=== PATIENT | male | born 1960 | race Caucasian/White ===

== ENCOUNTER 2019-01-08 15:33 | Inpatient (IN) | payer SELFPAY ==
[2019-01-08 16:22] LABS: #Basophils 0.1 thou/uL (0.0-0.2); #Eosinphils 0.5 thou/uL (0.0-0.7); #Lymphocytes 1.9 thou/uL (1.20-3.40); #Monocytes 1.1 thou/uL (0.11-0.59); #Neutrophils 7.6 thou/uL (1.40-6.50); %Basophils 0.7 % (0.0-1.0); %Eosinophils 4.2 % (0.0-10.0); %Lymphocytes 17.1 % (21.0-51.0); %Monocytes 9.9 % (0.0-10.0); %Neutrophils 68.1 % (42.0-75.0); Hemoglobin 12.4 g/dL (14.0-18.0); Mean Corpuscular HGB CONC 30.8 g/dL (32.0-36.0); Mean Corpuscular Hemoglobin 25.1 pg (27.0-31.0); Mean Corpuscular Volume 81.4 fL (78.0-98.0); Mean Platelet Volume 8.4 fL (7.4-10.4); Platelet Count 309 thou/uL (130-400); RBC Distribution Width 16.6 % (11.5-14.5); Red Blood Cell (RBC) Count 4.94 mill/uL (4.70-6.10); White Blood Cell (WBC) Count 11.2 thou/uL (4.8-10.8)
--- NOTE | 2019-01-08 16:23 | RAD ---
PORTABLE AP CHEST: Date: 01/08/19 HISTORY: Dyspnea, retained fluid. COMPARISON: 02/23/08. FINDINGS: Cardiac silhouette remains enlarged. Pulmonary vasculature is at the upper limits of normal. There is mild elevation of the right hemidiaphragm. Interstitial markings are prominent, but probably related to the portable technique. There is no consolidation or pleural fluid seen. Vascular calcifications seen thoracic aorta. There has been no significant interval change from the prior exam. IMPRESSION: Cardiomegaly with pulmonary vasculature at the upper limits of normal. POS: AGUSTINA
[2019-01-08 16:32] LABS: INR-International Normal Ratio 1.4; PTT 29.7 SEC (22.9-36.1)
[2019-01-08 16:44] LABS: ALT (SGPT) 12 U/L (8-55); AST (SGOT) 16 U/L (5-34); Acetaminophen Less than 6.0 mcg/mL (10.0-30.0); Albumin 3.6 g/dL (3.5-5.0); Alcohol Less than 10 mg/dL (Less than 10); Alkaline Phosphatase 112 U/L (40-150); Anion Gap 15 mmol/L (10-20); BUN (Urea Nitrogen) 29 mg/dL (8.4-25.7); Bilirubin, Total 0.4 mg/dL (0.2-1.2); CK (CPK) 84 U/L (30-200); Calc. Creatinine Clearance 0 mL/min (70-130); Calcium 8.9 mg/dL (7.8-10.44); Carbon Dioxide 25 mmol/L (22-29); Chloride 99 mmol/L (98-107); Estimated GFR-MDRD 36; Globulin 3.7 g/dL (2.4-3.5); Glucose 227 mg/dL (70-105); Lipase 60 U/L (8-78); Potassium 3.5 mmol/L (3.5-5.1); Protein, Total 7.3 g/dL (6.0-8.3); Salicylate Less than 8.0 mg/dL (15.0-30.0); Sodium 135 mmol/L (136-145)
[2019-01-08] MEDS ORDERED: Furosemide 40 MG/4 ML VIAL ONE ×2 (17:18→17:20)
[2019-01-08 18:08] LABS: Bilirubin Negative (Negative); Blood, Urine Trace (Negative); Clarity CLEAR (Clear); Glucose, Urine (Dipstick) 250 mg/dL (Negative); Leukocyte Negative (Negative); Nitrite Negative (Negative); Protein, Urine (Dipstick) 300 mg/dL (Neg-Trace); Specific Gravity, Urine 1.019 (1.002-1.036); Urobilinogen 0.2 mg/dL (0.2-1.0); pH, Urine 5.5 (5.0-9.0)
[2019-01-08 18:11] LABS: Bacteria/HPF None Seen HPF (None Seen); Hyaline Casts/LPF 7-10 HYALINE CAST LPF (0-3 Hyaline); Pathc Cast-AUWi Flag 0.87 (0-2.49); RBC/HPF 0-3 HPF (0-3); Squamous Epithelial 0-3 HPF (0-3); WBC/HPF 0-3 HPF (0-3)
[2019-01-08 18:25] LABS: Amphetamine Not Detected (NotDetected); Barbiturates Screen Not Detected (NotDetected); Benzodiazepine Screen Not Detected (NotDetected); Cocaine Metabolite Screen Not Detected (NotDetected); Medtox Control Line Valid? VALID (VALID); Medtox Reader # READER 1; Methadone Not Detected (NotDetected); Methamphetamine Not Detected (NotDetected); Opiate Screen Not Detected (NotDetected); Oxycodone Screen Not Detected (NotDetected); Phencyclidine (PCP) Not Detected (NotDetected); THC/Cannabinoid Screen Not Detected (NotDetected); Tricyclic Screen Not Detected (NotDetected)
[2019-01-08] MEDS ORDERED: Ondansetron PF 4 MG/2 ML Vial IVP PRN (20:32)
[2019-01-08] MEDS ORDERED: Ondansetron ODT 4 MG TAB PO PRN (20:32)
[2019-01-08] MEDS ORDERED: Dextrose 50% Abboject 50 ML SYRINGE SLOW IVP PRN (23:30)
[2019-01-08] MEDS ORDERED: Dextrose 5% in Water 1,000 ML IV PRN (23:30)
[2019-01-08 23:38] VITALS: BMI 35.0
[2019-01-09] MEDS: HumaLOG 300 UNITS/3 ML VIAL SC PRN ×5 (00:28→20:37)
--- NOTE | 2019-01-09 00:30 | HP ---
PRIMARY CARE PHYSICIAN: Dr. Avni Bass. CODE STATUS: Full code. TIME OF EVALUATION: 7:40 p.m. CHIEF COMPLAINT: Fluid retention. HISTORY OF PRESENT ILLNESS: A 58-year-old male patient. The patient has a past medical history of cirrhosis of the liver, kidney disease, CHF, neuropathy, gout, diabetes, GERD, hyperlipidemia, hypertension, came to the hospital after having bilateral leg swelling and also shortness of breath. The patient has reported that his symptoms have been present for the past 2 months and has been getting gradually worse, symptoms were reported as [id number]. The patient has been unable to continue his activities of daily living. No clear triggers. No alleviating factors. Of note, the patient was recently admitted to [facility] and had an improvement in the symptoms after 51 pounds reportedly were taken out of his body. REVIEW OF SYSTEMS: CONSTITUTIONAL: No fever or chills. The patient reported generalized weakness. RESPIRATORY: The patient has shortness of breath, cough, no sputum production. CARDIOVASCULAR: No chest pain or palpitation. GASTROINTESTINAL: No nausea, no vomiting, diarrhea, or abdominal pain. 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 GENITOURINARY: No burning on urination. EXTREMITIES: The patient has bilateral leg swelling. All other systems were reviewed and negative except for findings mentioned above. PAST MEDICAL HISTORY: As mentioned in the HPI. PAST SURGICAL HISTORY: No surgical history. PSYCHIATRIC HISTORY: No psych history. SOCIAL HISTORY: No drugs, no alcohol. The patient chews tobacco. FAMILY HISTORY: Reviewed, noncontributory for current presentation. KNOWN ALLERGIES: To codeine and penicillins. REPORTED MEDICATIONS: 1. Glipizide. 2. Colchicine. 3. Levothyroxine. 4. Gabapentin. 5. Allopurinol. 6. Metoprolol. 7. Lasix. 8. Spironolactone. 9. Fluoxetine. 10. Omeprazole. 11. Eliquis. PHYSICAL EXAMINATION: VITAL SIGNS: On presentation, blood pressure 131/96, heart rate 87, respiratory rate was 20, temperature 98.3. Pain was 0/10. Oxygen saturation was 96, initially saturation was 88 on room air, needing nasal cannula 2 L to keep saturation above 90. GENERAL APPEARANCE: The patient is alert, oriented, not in any acute distress. HEENT: Eyes, normal conjunctivae. Moist oral mucosa. Anicteric. NECK: No JVD. RESPIRATORY: The patient has bilateral rales in the bases. No wheezing. Symmetric expansion. CARDIOVASCULAR: Normal rate, regular rhythm. No murmurs. No gallop. Bilateral leg edema. ABDOMEN: Soft, mildly distended. Normal bowel sounds. MUSCULOSKELETAL: Baseline range of motion and strength. No tenderness. SKIN: Warm, intact. No pallor. No rash. No redness. Peripheral pulses are present. Capillary refill seems to be intact. NEUROLOGIC: No evidence of any new focal weakness. Baseline speech. Cranial nerves seems to be intact. PSYCHIATRIC: The patient is in good mood. No anxiety. Optimal judgment. IMAGING STUDIES: EKG was reviewed. The patient has atrial fibrillation at a rate of 85 with QRS duration 166, QT corrected 550, LBBB. Chest x-ray was reviewed. The patient has cardiomegaly with pulmonary vasculature at the upper limits of normal. LABORATORY DATA: Labs were reviewed. The patient has white count 11.2, hemoglobin 12.4, MCV 81.4, platelet count 309. Coagulation; PT 17, INR 1.4, PTT 29.7. Chemistry; sodium 135, potassium 3.5, chloride 99, carbon dioxide 25, anion gap 15, BUN 29, creatinine 1.93, GFR 36, glucose 227, calcium 9.9, total bilirubin 0.4, AST 16, ALT 12, alkaline phosphatase 112. Ammonia 26, creatinine 84. Troponin was negative. Beta-natriuretic peptide 1558. Serum total protein 7.3, albumin 3.6, globulin 3.7, albumin to globulin ratio is 1.0. Lipase was 16. UA; protein was 300, glucose 215. Toxicology was negative. ASSESSMENT AND PLAN: The patient will be placed in the hospital with following medical problems: 1. Fluid overload, might be a mix of multiple problems. The patient had reportedly congestive heart failure, liver failure, kidney failure, previous admissions to another hospital, and hepatorenal syndrome. The patient has bilateral leg edema, the patient now will receive diuresis, we will call Nephrology for assistance with this case. We will follow recommendations. 2. Chronic kidney disease: Possible hepatorenal syndrome. Nephrology has been consulted. Creatinine is better than previous admissions, the patient will need diuresis. 3. History of congestive heart failure. We will have an echo here in the system. Beta-natriuretic peptide is 1558, the patient is in diuresis. Reconcile home medications. 4. History of cirrhosis of the liver, the patient will need diuresis, reconcile home medications. 5. Uncontrolled diabetes. The patient has blood sugar of 227. reconcile home medications. We will place the patient on sliding scale. 6. History of gastroesophageal reflux disease. We will reconcile home medications once updated. 7. Hyperlipidemia, low-cholesterol diet is advised, reconcile home medications once updated. 8. Uncontrolled hypertension. The patient presented with systolic blood pressure 150-145, hypertensive, we will reconcile home medications, we will adjust treatment as needed. 9. Deep venous thrombosis prophylaxis. Job ID: [id number]
[2019-01-09 05:46] LABS: #Basophils 0.1 thou/uL (0.0-0.2); #Eosinphils 0.4 thou/uL (0.0-0.7); #Lymphocytes 1.8 thou/uL (1.20-3.40); #Monocytes 1.3 thou/uL (0.11-0.59); #Neutrophils 6.9 thou/uL (1.40-6.50); %Basophils 0.9 % (0.0-1.0); %Eosinophils 4.1 % (0.0-10.0); %Monocytes 12.7 % (0.0-10.0); %Neutrophils 65.3 % (42.0-75.0); Hemoglobin 11.4 g/dL (14.0-18.0); Mean Corpuscular HGB CONC 30.2 g/dL (32.0-36.0); Mean Corpuscular Hemoglobin 24.8 pg (27.0-31.0); Mean Corpuscular Volume 81.8 fL (78.0-98.0); Mean Platelet Volume 8.6 fL (7.4-10.4); Platelet Count 311 thou/uL (130-400); RBC Distribution Width 16.5 % (11.5-14.5); Red Blood Cell (RBC) Count 4.62 mill/uL (4.70-6.10); White Blood Cell (WBC) Count 10.5 thou/uL (4.8-10.8)
[2019-01-09 05:59] LABS: Anion Gap 15 mmol/L (10-20); BUN (Urea Nitrogen) 31 mg/dL (8.4-25.7); Calc. Creatinine Clearance 88 mL/min (70-130); Calcium 8.6 mg/dL (7.8-10.44); Carbon Dioxide 27 mmol/L (22-29); Chloride 98 mmol/L (98-107); Estimated GFR-MDRD 40; Glucose 205 mg/dL (70-105); Magnesium 2.2 mg/dL (1.6-2.6); Potassium 3.6 mmol/L (3.5-5.1); Sodium 136 mmol/L (136-145)
[2019-01-09] MEDS: Acetaminophen 325 MG TAB PO PRN (06:10)
[2019-01-09] MEDS: Furosemide 40 MG/4 ML VIAL SLOW IVP SCH ×2 (06:10→15:47)
[2019-01-09] MEDS ORDERED: Non-Formulary Item 1 EACH (Levothyroxine Sodium [Synthroid] 200 MCG) PO SCH (09:00)
[2019-01-09] MEDS ORDERED: Levothyroxine Sodium 100 MCG TAB PO SCH (09:15)
--- NOTE | 2019-01-09 09:52 | CON ---
DATE OF CONSULTATION: REASON FOR CONSULTATION: Elevated creatinine. HISTORY OF PRESENT ILLNESS: This is a 58-year-old gentleman, who presented to the hospital yesterday with fluid retention with history of congestive heart failure. His creatinine went up to 2.2, baseline is unavailable. The patient denies any nausea, vomiting, or chest pain. He has had leg swelling on and off. PAST MEDICAL HISTORY: Significant for cirrhosis, hypertension, gout, GERD, and hyperlipidemia. SOCIAL HISTORY: No alcohol or drug use. FAMILY HISTORY: Negative for ESRD. ALLERGIES: REVIEWED. HOME MEDICATIONS: List reviewed. REVIEW OF SYSTEMS: A 15-point review of system was performed and was negative except for positives noted above. GENERAL: HEAD: NECK: No swelling or lumps. NOSE: No epistaxis or discharge. EYES: No diplopia or pain. RESPIRATORY: CARDIOVASCULAR: GASTROINTESTINAL: /LOOM WINDER TENDER: MUSCULOSKELETAL: No joint pain. NEUROPSYCHIATIC SYSTEMS: No suicidal ideation. No ideation. SKIN: Denies any rash or ulcer. CONSTITUTIONAL: No fever or chills. PHYSICAL EXAMINATION: CONSTITUTIONAL: The patient awake and alert. VITAL SIGNS: Afebrile, pulse 87, breathing 16, and blood pressure 131/96. GENERAL APPEARANCE AND MENTAL STATUS: Fair. HEAD/NECK: Normocephalic. Atraumatic. EYES: EOMI. No deformity. EARS: Clear. No ulcers. NOSE: Intact. No lesions. MOUTH: Clear. No discharge. THROAT: Clear. No exudate. LUNGS: Clear. No crackles. CARDIAC: S1, S2. No rub. ABDOMEN: Benign. Bowel sounds positive. GENITALIA/RECTUM: Sky absent. BACK/EXTREMITIES: Lower extremities have edema. NEUROLOGICAL: Alert and motor intact. SKIN: LYMPHATICS: LABORATORY DATA: Labs show hemoglobin 11.4. Creatinine 1.7. Protein 300. ASSESSMENT AND PLAN: Acute kidney injury, chronic kidney disease due to cardiorenal syndrome in the setting of diabetes mellitus. Continue to monitor renal function closely. I will order renal imaging. No indication for dialysis at this time. Job ID: [id number]
[2019-01-09] MEDS: Gabapentin 100 MG CAP PO SCH ×2 (11:08→20:37)
[2019-01-09] MEDS: Metoprolol Tartrate 50 MG TAB PO SCH ×2 (11:08→20:36)
[2019-01-09] MEDS: Metolazone 2.5 MG TAB PO SCH (11:08)
[2019-01-09] MEDS: Colchicine 0.6 MG TAB PO SCH ×2 (11:09→20:36)
[2019-01-09] MEDS: Allopurinol 300 MG TAB PO SCH ×2 (11:09→20:37)
--- NOTE | 2019-01-09 11:19 | ULT ---
STANDARD BILATERAL RENAL ULTRASOUND: HISTORY: Acute kidney injury. COMPARISON: None. TECHNIQUE: Real-time, hernandez-scale, and color evaluation of the kidneys was performed, as well as of the urinary b ladder. FINDINGS: The right kidney measures 11.3 x 4.9 x 5.9 cm, and the left kidney measures 11.1 x 6 x 6 cm. Pre-voi d urinary bladder volume is 70 mL. There is a small left interpolar renal cyst, measuring 2.3 cm. There is perihepatic ascites. IMPRESSION: 1. No evidence of obstructive uropathy. 2. Small to moderate volume perihepatic ascites. POS: TPC
[2019-01-09 15:00] LABS: Actual Bicarbonate (HCO3a) 28.4 mEq/L (22-28); Base Excess (BEa) 4.3 mEq/L (-2.0 to +3.0); CO2 Tension 40.8 mmHg (35.0-45.0); Calcium, Ionized 1.11 mmol/L (1.12-1.30); Carboxyhemoglobin (COHb) 1.3 gm% (0.0-3.0); Hemoglobin (Hb) 12.2 g/dL (14.0-18.0); O2 Tension (PaO2) 81.3 mmHg (80.0-100.0); Puncture Site RRA; pH, Arterial 7.46 (7.35-7.45)
--- NOTE | 2019-01-09 17:37 | CON ---
DATE OF CONSULTATION: 01/09/2019 CONSULTING PHYSICIAN: Dr. Avni Varela. REASON FOR CONSULTATION: Cirrhosis of the liver, ascites. HISTORY OF PRESENT ILLNESS: The patient is a 58-year-old male with past medical history of chronic kidney disease, congestive heart failure, gout, diabetes, GERD, hyperlipidemia, hypertension, and cirrhosis of the liver complicated by ascites, presenting with complaints of increased abdominal distention, lower extremity swelling, and shortness of breath. The patient was recently admitted to the [facility] approximately 1 to 1-1/2 months ago with complaints of increased abdominal distention and lower extremity edema. He was diagnosed at that time with cirrhosis of the liver and hepatic ascites, for which he underwent IV Lasix administration and lost approximately 50 pounds during that admission. He was ultimately discharged to home with plans to continue with oral diuretic management and follow up with the GI physician. However, at home, he did not tolerate the oral diuretics well with no significant increase in urine output with these oral diuretics and ultimately gained back approximately 20 to 30 pounds, at which point, I saw him in clinic. Last week in clinic, he noted significant abdominal distention again as well as exquisite abdominal pain that generalized to the entire abdomen that was sharp/stabbing in nature and concerning for SBP. Plans at the time of clinic evaluation for an expedited paracentesis along with placing the patient on spironolactone and furosemide as part of diuretic management of his hepatic ascites, but with careful attention to his creatinine due to chronic kidney disease and elevated creatinine of 1.7 at that time. Approximately 2 days ago, I was notified by the patient's that he has had no significant urine output despite the administration of spironolactone 100 mg daily and furosemide 40 mg daily and had put out "low colored urine" in addition to increased shortness of breath and increased abdominal distention. With these findings, I instructed both him and his to go to either his PCP or the urgent care facility for further evaluation for possible acute renal failure. When evaluated in the [facility], he was noted to have a creatinine of 2.3, concerning for acute kidney injury versus hepatorenal syndrome, for which he was ultimately transferred to [facility] for further evaluation. Today, the patient states that he continues to have the abdominal pain located primarily in the lower abdominal quadrants, characterizes a sharp stabbing type sensation, but it is improved from when I saw him in clinic last week. He also does continue to have increased shortness of breath at rest as well as on exertion and some mild chest pressure, but no overt chest pain. He also endorses increased lower extremity edema when compared to previous as well, but denies any nausea, vomiting, fevers, chills, hematemesis, melena, hematochezia, dysphagia, or odynophagia. Of note, the patient has received 1 dose of IV Lasix during this admission and had put out approximately 40 to 60 mL of urine with this administration. REVIEW OF SYSTEMS: A 10-category review of systems was obtained with all responses negative except for the pertinent positives as listed in HPI. PAST MEDICAL HISTORY: As per HPI. PAST SURGICAL HISTORY: None. SOCIAL HISTORY: Denies any alcohol or illicit drug use, although, he does use chewing tobacco daily. FAMILY HISTORY: Denies any GI malignancies. OUTPATIENT MEDICATIONS: Reviewed. ALLERGIES: CODEINE AND PENICILLIN. PHYSICAL EXAMINATION: VITAL SIGNS: Temperature 97.8, pulse 75, blood pressure 129/96, respiratory rate 20, and saturating 97% on room air. GENERAL: The patient was sitting at bedside, in no acute distress. Alert and oriented x4. HEENT: Neck supple. Possible mild JVD noted. No scleral icterus noted either. RESPIRATORY: Clear to auscultation in the bilateral upper lung horowitz, although, diminished breath sounds in the bilateral lower lung horowitz, but no discernible crackles or wheezing. CARDIOVASCULAR: Irregularly irregular rhythm without any discernible murmurs, gallops, or rubs. ABDOMEN: Normoactive bowel sounds. Mildly tense to palpation, moderate to significantly distended with tenderness to palpation in the lower abdominal quadrants. EXTREMITIES: 1+ bilateral lower extremity edema extending up to below the knee. Otherwise, no cyanosis or clubbing. LABORATORY DATA: CBC with a white blood cell count of 10.5, hemoglobin 11.4, hematocrit 37.8, platelets 311. INR 1.4. Chemistry with sodium of 136, potassium 3.6, chloride 98, CO2 of 27, BUN 31, creatinine 1.76, glucose 205, AST 16, ALT 12, alkaline phosphatase 112, total bilirubin 0.4, albumin 3.6, and BNP 1558. IMAGING DATA: Renal ultrasound obtained on January 09, 2019, showed no evidence of obstructive uropathy, but did show a aazyy-da-wanxhsic volume perihepatic ascites. Chest x-ray obtained on January 08, 2019, showed an enlarged cardiac silhouette with pulmonary vasculature at the upper limits of normal. There was also mild elevation of the right hemidiaphragm and interstitial markings prominent. ASSESSMENT AND PLAN: The patient is a 58-year-old male with past medical history of chronic kidney disease, congestive heart failure, neuropathy, gout, diabetes, gastroesophageal reflux disease, hyperlipidemia, hypertension, and cirrhosis complicated with ascites, presenting with significant ascites on physical examination and labs consistent with acute kidney injury. Cirrhosis with ascites. The patient is presenting with a recent diagnosis of cirrhosis made on the basis of prior imaging consistent with cirrhotic morphology as well as increased hepatic ascites consistent with portal hypertension. Paracentesis was not performed during his last hospitalization at [facility], so further evaluation cannot be performed at this time in terms of the definite etiology of his ascitic fluid. With the normal platelet count, normal albumin, and only slightly elevated INR, liver function seems to be preserved, making the likelihood of hepatic ascites much less likely. Given his prior history of congestive heart failure and chronic kidney disease, especially recently with decreased to no urinary output, those are more likely explanations why he is developing a significant amount of ascitic fluid. Based on the current labs, his current calculated MELD score is approximately 18, which is primarily driven by his worsening renal function (albeit improving) and can be greater than the Child-Leonard classification C. RECOMMENDATIONS: 1. We would obtain paracentesis with fluid protein, albumin, cell count and culture to evaluate for possible hepatic versus other source of his ascites fluid formation as well as determination for possible SBP. 2. Agree with IV Lasix administration given the refractory nature of oral diuretics as an outpatient. We would continue to closely monitor renal function while inpatient. 3. We would continue the patient on a low-sodium diet with ingestion of no more than 2000 mg of sodium daily. 4. We would consider obtaining an ultrasound or CT scan of the liver during this admission for possible hepatocellular carcinoma, although, this can be performed as an outpatient. 5. We will continue to trend INR and chemistries daily to assess for worsening liver function. 6. We would also assess the patient daily for changes in neurological status as it may be a harbinger of worsening liver function as well. 7. Agree with consultation of Nephrology Service for evaluation of this patient in probable worsening kidney disease that may be contributing to his hypervolemic status. 8. Based on his downtrending creatinine, hepatorenal syndrome is unlikely, but I would avoid any potential nephrotoxic medications during this admission. We will continue to follow. Dr. Low is on-call this weekend and will follow this patient. Please call with any additional questions. Job ID: [id number]
--- NOTE | 2019-01-09 18:22 | ULT ---
LIMITED ULTRASOUND ABDOMEN 01/09/19 HISTORY: Ascites, possible SBP. Elevated white blood cell count. FINDINGS: Limited sonographic evaluation of the abdomen was performed. There is a small amount of intraperitone al free fluid seen within the abdomen, predominantly within the right upper quadrant and to a much le sser extent in each lower quadrant. IMPRESSION: 1. Small amount of ascites. 2. This examination was scheduled as ultrasound guided paracentesis, but patient is currently on Eliquis. After 48 hours of discontinuation of the Eliquis, paracentesis can be performed. POS: AHSAN
[2019-01-09] MEDS: hydrOXYzine 10 MG TAB PO SCH (20:36)
--- NOTE | 2019-01-09 20:50 | PDOC.PN ---
- Subjective Encounter Start Date: 01/09/19 Encounter Start Time: 09:00 Subjective: pt up in bed complains of some pain to his bilateral groin area - Objective Resuscitation Status - Order Detail: 01/08/19 20:32 Resuscitation Status Routine Resuscitation Status: FULL: Full Resuscitation Vital Signs & Weight: Vital Signs (12 hours) Temp Pulse Resp BP Pulse Ox 01/09/19 20:00 97.4 F L 89 16 100/91 H 93 L 01/09/19 15:54 97.8 F 75 20 129/96 H 97 01/09/19 11:48 97.4 F L 97 20 139/84 92 L 01/09/19 11:01 95 Weight Admit Weight 303 lb 5 oz Weight 303 lb 5 oz I&O: 01/08/19 01/09/19 01/10/19 06:59 06:59 06:59 Intake Total 720 970 Output Total 350 1700 Balance 370 -730 Result Diagrams: 01/09/19 05:12 01/09/19 05:12 Additional Labs: Accuchecks 01/09/19 01/09/19 01/09/19 19:51 17:17 10:42 POC Glucose 311 H 321 H 268 H 01/09/19 01/08/19 05:38 23:47 POC Glucose 224 H 306 H Phys Exam - Physical Examination Neck: no nodes, no JVD, supple, full ROM Respiratory: no wheezing, no rales, no rhonchi, wheezing present, clear to auscultation bilateral Cardiovascular: RRR, no significant murmur, no rub, gallop, irregular Gastrointestinal: soft, positive bowel sounds distenstion Musculoskeletal: no edema, pulses present, edema present Dx/Plan (1) SOB (shortness of breath) Code(s): R06.02 - SHORTNESS OF BREATH Status: Acute (2) SIMONA (acute kidney injury) Code(s): N17.9 - ACUTE KIDNEY FAILURE, UNSPECIFIED Status: Acute (3) Decompensation of cirrhosis of liver Code(s): K72.90 - HEPATIC FAILURE, UNSPECIFIED WITHOUT COMA Status: Acute (4) Afib Code(s): I48.91 - UNSPECIFIED ATRIAL FIBRILLATION Status: Acute - Plan will hold eliquis for now -: pt to have paracentesis possible or saturday due to pt being on eliquis -: will continue iv lasix, pt's albumin is normal -: 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 Review of Systems - Review of Systems Respiratory: negative: Cough, Dry, Shortness of Breath, Hemoptysis, SOB with Excertion, Pleuritic Pain, Sputum, Wheezing Cardiovascular: negative: chest pain, palpitations, orthopnea, paroxysmal nocturnal dyspnea, edema, light headedness, other Gastrointestinal: Abdominal Pain Genitourinary: negative: Dysuria, Frequency, Incontinence, Hematuria, Retention , Other - Medications/Allergies Allergies/Adverse Reactions: Allergies Allergy/AdvReac Type Severity Reaction Status Date / Time codeine Allergy Verified 01/09/19 15:22 Penicillins Allergy Verified 01/09/19 00:03 Medications: Current Medications Acetaminophen (Tylenol) 650 mg PO Q4H PRN PRN Reason: Headache/Fever/Mild Pain (1-3) Last Admin: 01/09/19 06:10 Dose: 650 mg Allopurinol (Zyloprim) 300 mg PO BID [facility] Last Admin: 01/09/19 20:37 Dose: 300 mg Colchicine (Colcrys) 0.5 mg PO BID [facility] Last Admin: 01/09/19 20:36 Dose: 0.5 mg Dextrose/Water (Dextrose 50%) 25 gm SLOW IVP PRN PRN PRN Reason: Hypoglycemia Furosemide (Lasix) 40 mg SLOW IVP 0600,1400 [facility] Last Admin: 01/09/19 15:47 Dose: 40 mg Gabapentin (Neurontin) 100 mg PO BID [facility] Last Admin: 01/09/19 20:37 Dose: 100 mg Glucagon (Glucagon) 1 mg IM PRN PRN PRN Reason: Hypoglycemia Hydroxyzine HCl (Atarax) 10 mg PO BID [facility] Last Admin: 01/09/19 20:36 Dose: 10 mg Dextrose/Water (D5w) 1,000 mls @ 0 mls/hr IV .Q0M PRN PRN Reason: Hypoglycemia Insulin Glargine 5 units/ (Miscellaneous Medication) 0.05 mls @ 0 mls/hr SC QAM JOSE DANIEL Insulin Glargine 5 units/ (Miscellaneous Medication) 0.05 mls @ 0 mls/hr SC HS JOSE DANIEL Insulin Human Lispro (Humalog) 0 units SC .MILD SLIDING SCALE PRN PRN Reason: Mild Correctional Scale Last Admin: 01/09/19 20:37 Dose: 5 unit Levothyroxine Sodium (Synthroid) 200 mcg PO 0600 JOSE DANIEL Metolazone (Zaroxolyn) 2.5 mg PO 0830 JOSE DANIEL Last Admin: 01/09/19 11:08 Dose: 2.5 mg Metoprolol Tartrate (Lopressor) 50 mg PO BID JOSE DANIEL Last Admin: 01/09/19 20:36 Dose: 50 mg Ondansetron HCl (Zofran Odt) 4 mg PO Q6H PRN PRN Reason: Nausea/Vomiting Ondansetron HCl (Zofran) 4 mg IVP Q6H PRN PRN Reason: Nausea/Vomiting Sodium Chloride (Flush - Normal Saline) 10 ml IVF Q12HR JOSE DANIEL Sodium Chloride (Flush - Normal Saline) 10 ml IVF PRN PRN PRN Reason: Saline Flush
[2019-01-09] MEDS: Insulin Glargine 5 UNITS in Pre-Filled Syringe 1 EACH SC SCH (21:40)
[2019-01-09] MEDS: Melatonin 3 MG TAB PO PRN (22:37)
[2019-01-10] MEDS: HumaLOG 300 UNITS/3 ML VIAL SC PRN ×3 (06:08→17:51)
[2019-01-10] MEDS: Furosemide 40 MG/4 ML VIAL SLOW IVP SCH (06:08)
[2019-01-10] MEDS: Levothyroxine Sodium 100 MCG TAB PO SCH (06:08)
[2019-01-10] MEDS: Metoprolol Tartrate 50 MG TAB PO SCH ×2 (08:20→20:24)
[2019-01-10] MEDS: Gabapentin 100 MG CAP PO SCH ×2 (08:20→20:24)
[2019-01-10] MEDS: Colchicine 0.6 MG TAB PO SCH ×2 (08:23→20:23)
[2019-01-10] MEDS: Allopurinol 300 MG TAB PO SCH ×2 (08:23→20:24)
[2019-01-10] MEDS: hydrOXYzine 10 MG TAB PO SCH ×2 (08:24→20:24)
[2019-01-10] MEDS: Metolazone 2.5 MG TAB PO SCH (08:24)
[2019-01-10] MEDS: Insulin Glargine 5 UNITS in Pre-Filled Syringe 1 EACH SC SCH (08:25)
[2019-01-10] MEDS ORDERED: Insulin Glargine 5 UNITS in Pre-Filled Syringe 1 EACH SC SCH (09:00)
[2019-01-10 11:13] LABS: Anion Gap 17 mmol/L (10-20); BUN (Urea Nitrogen) 28 mg/dL (8.4-25.7); Calc. Creatinine Clearance 92 mL/min (70-130); Calcium 8.8 mg/dL (7.8-10.44); Carbon Dioxide 26 mmol/L (22-29); Chloride 97 mmol/L (98-107); Estimated GFR-MDRD 42; Glucose 336 mg/dL (70-105); Potassium 3.6 mmol/L (3.5-5.1); Sodium 136 mmol/L (136-145)
[2019-01-10] MEDS ORDERED: Sodium Bicarbonate 2.5 MEQ/5 ML VIAL ONE (12:06)
[2019-01-10 12:40] LABS: Magnesium 1.9 mg/dL (1.6-2.6); Phosphorus 4.2 mg/dL (2.3-4.7)
--- NOTE | 2019-01-10 13:05 | PRG ---
DATE OF SERVICE: 01/10/2019 SUBJECTIVE: A 58-year-old gentleman being seen for acute kidney injury. The patient denies nausea, vomiting, or chest pain. OBJECTIVE: GENERAL: The patient is awake and alert. VITAL SIGNS: Afebrile, pulse 97, breathing 16, blood pressure 138/95. GENERAL APPEARANCE AND MENTAL STATUS: Fair. HEAD/NECK: Normocephalic. Atraumatic. EYES: EOMI. No deformity. EARS: Clear. No ulcers. NOSE: Intact. No lesions. MOUTH: Clear. No discharge. THROAT: Clear. No exudate. LUNGS: Clear. No crackles. CARDIAC: S1, S2. No rub. ABDOMEN: Benign. Bowel sounds positive. GENITALIA/RECTUM: Sky absent. BACK/EXTREMITIES: Edema 0+. NEUROLOGICAL: Alert and motor intact. SKIN: LYMPHATICS: LABORATORY DATA: Labs showed hemoglobin 9.4 and creatinine is 1.6. ASSESSMENT: 1. Acute kidney injury with chronic kidney disease, improved. 2. Hypertension, stable. 3. Anemia, stable. 4. Medication based on GFR appropriate. No indication for dialysis. Job ID: [id number]
--- NOTE | 2019-01-10 13:59 | PRG ---
DATE OF SERVICE: 01/10/2019 SUBJECTIVE: The patient is feeling well. He has no complaints. He is eating well. Had a good bowel movement. No nausea or vomiting. OBJECTIVE: VITAL SIGNS: Temperature 97.8, pulse of 100, respiratory rate 20, and blood pressure 138/95. CHEST: Clear. CARDIOVASCULAR: Regular rate and rhythm. ABDOMEN: Protuberant and nontender, without organomegaly or masses. EXTREMITIES: Show no edema. LABORATORY DATA: Shows a BUN of 28, creatinine 1.68, and glucose 336. Ammonia is 29. CBC shows a hemoglobin 11.4, hematocrit 37.8, and platelet count is 311. Abdominal ultrasound showed small amount of ascites. Renal ultrasound showed dzngd-[id number]-jawxhdby volume of perihepatic ascites. ASSESSMENT: 1. Cirrhosis. 2. Ascites. 3. Renal insufficiency - improving. RECOMMENDATIONS: 1. Paracentesis tomorrow. 2. Albumin prior to paracentesis. 3. Fluid studies postparacentesis. Job ID: [id number]
--- NOTE | 2019-01-10 14:28 | PDOC.PN ---
- Subjective Encounter Start Date: 01/10/19 Encounter Start Time: 10:15 Subjective: pt up in bed feels tired - Objective Resuscitation Status - Order Detail: 01/08/19 20:32 Resuscitation Status Routine Resuscitation Status: FULL: Full Resuscitation Vital Signs & Weight: Vital Signs (12 hours) Temp Pulse Resp BP Pulse Ox 01/10/19 11:53 97.8 F 100 20 138/95 H 94 L 01/10/19 08:14 94 L 01/10/19 07:56 97.9 F 97 20 97/59 L 92 L 01/10/19 04:00 97.5 F L 84 16 145/67 H 90 L Weight Admit Weight 303 lb 5 oz Weight 303 lb I&O: 01/09/19 01/10/19 01/11/19 06:59 06:59 06:59 Intake Total 720 1820 Output Total 350 3150 1275 Balance 528 -1978 -5813 Result Diagrams: 01/09/19 05:12 01/10/19 10:32 Additional Labs: Accuchecks 01/10/19 01/10/19 01/09/19 10:51 05:54 19:51 POC Glucose 339 H 226 H 311 H 01/09/19 17:17 POC Glucose 321 H Phys Exam - Physical Examination Cardiovascular: RRR, no significant murmur, no rub, gallop, irregular Gastrointestinal: soft, positive bowel sounds mild distention of abd Musculoskeletal: no edema, pulses present, edema present Neurological: non-focal, normal sensation, moves all 4 limbs Dx/Plan (1) SOB (shortness of breath) Code(s): R06.02 - SHORTNESS OF BREATH Status: Acute (2) SIMONA (acute kidney injury) Code(s): N17.9 - ACUTE KIDNEY FAILURE, UNSPECIFIED Status: Acute (3) Decompensation of cirrhosis of liver Code(s): K72.90 - HEPATIC FAILURE, UNSPECIFIED WITHOUT COMA Status: Acute (4) Afib Code(s): I48.91 - UNSPECIFIED ATRIAL FIBRILLATION Status: Acute - Plan will change lasix to daily dose -: ammonia level normal -: pt will get his paracentesis in am due to eliquis -: will increase his lantus due to elevated bs * . Review of Systems - Review of Systems Cardiovascular: negative: chest pain, palpitations, orthopnea, paroxysmal nocturnal dyspnea, edema, light headedness, other Gastrointestinal: negative: Nausea, Vomiting, Abdominal Pain, Diarrhea, Constipation, Melena, Hematochezia, Other Genitourinary: negative: Dysuria, Frequency, Incontinence, Hematuria, Retention , Other - Medications/Allergies Allergies/Adverse Reactions: Allergies Allergy/AdvReac Type Severity Reaction Status Date / Time codeine Allergy Verified 01/09/19 15:22 Penicillins Allergy Verified 01/09/19 00:03 Medications: Current Medications Acetaminophen (Tylenol) 650 mg PO Q4H PRN PRN Reason: Headache/Fever/Mild Pain (1-3) Last Admin: 01/09/19 06:10 Dose: 650 mg Albumin Human (Albumin 25%) 50 gm IVPB ONE ONE Stop: 01/11/19 07:46 Allopurinol (Zyloprim) 300 mg PO BID [facility] Last Admin: 01/10/19 08:23 Dose: 300 mg Colchicine (Colcrys) 0.5 mg PO BID [facility] Last Admin: 01/10/19 08:23 Dose: 0.5 mg Dextrose/Water (Dextrose 50%) 25 gm SLOW IVP PRN PRN PRN Reason: Hypoglycemia Furosemide (Lasix) 40 mg SLOW IVP 0600,1400 [facility] Last Admin: 01/10/19 06:08 Dose: 40 mg Furosemide (Lasix) 40 mg SLOW IVP DAILY [facility] Gabapentin (Neurontin) 100 mg PO BID [facility] Last Admin: 01/10/19 08:20 Dose: 100 mg Glucagon (Glucagon) 1 mg IM PRN PRN PRN Reason: Hypoglycemia Hydroxyzine HCl (Atarax) 10 mg PO BID [facility] Last Admin: 01/10/19 08:24 Dose: 10 mg Dextrose/Water (D5w) 1,000 mls @ 0 mls/hr IV .Q0M PRN PRN Reason: Hypoglycemia Insulin Glargine 8 units/ (Miscellaneous Medication) 0.08 mls @ 0 mls/hr SC HS JOSE DANIEL Insulin Glargine 8 units/ (Miscellaneous Medication) 0.08 mls @ 0 mls/hr SC QAM [facility] Insulin Human Lispro (Humalog) 0 units SC .MILD SLIDING SCALE PRN PRN Reason: Mild Correctional Scale Last Admin: 01/10/19 11:30 Dose: 5 unit Levothyroxine Sodium (Synthroid) 200 mcg PO 0600 [facility] Last Admin: 01/10/19 06:08 Dose: 200 mcg Melatonin (Melatonin) 3 mg PO HS PRN PRN Reason: Insomnia Last Admin: 01/09/19 22:37 Dose: 3 mg Metoprolol Tartrate (Lopressor) 50 mg PO BID [facility] Last Admin: 01/10/19 08:20 Dose: 50 mg Ondansetron HCl (Zofran Odt) 4 mg PO Q6H PRN PRN Reason: Nausea/Vomiting Ondansetron HCl (Zofran) 4 mg IVP Q6H PRN PRN Reason: Nausea/Vomiting Sodium Chloride (Flush - Normal Saline) 10 ml IVF Q12HR [facility] Last Admin: 01/10/19 08:33 Dose: 10 ml Sodium Chloride (Flush - Normal Saline) 10 ml IVF PRN PRN PRN Reason: Saline Flush
[2019-01-10] MEDS: Melatonin 3 MG TAB PO PRN (20:44)
[2019-01-10] MEDS ORDERED: Insulin Glargine 8 UNITS in Pre-Filled Syringe 1 EACH SC SCH (21:00)
[2019-01-11] MEDS: Acetaminophen 325 MG TAB PO PRN (00:47)
[2019-01-11] MEDS: Levothyroxine Sodium 100 MCG TAB PO SCH (05:51)
[2019-01-11 06:40] LABS: Anion Gap 12 mmol/L (10-20); BUN (Urea Nitrogen) 28 mg/dL (8.4-25.7); Calc. Creatinine Clearance 99 mL/min (70-130); Calcium 8.9 mg/dL (7.8-10.44); Carbon Dioxide 32 mmol/L (22-29); Chloride 96 mmol/L (98-107); Estimated GFR-MDRD 46; Glucose 226 mg/dL (70-105); Potassium 3.6 mmol/L (3.5-5.1); Sodium 136 mmol/L (136-145)
[2019-01-11] MEDS ORDERED: Albumin 25% 25 GM/100 ML BOT IVPB ONE (07:45)
[2019-01-11] MEDS: Insulin Glargine 8 UNITS in Pre-Filled Syringe 1 EACH SC SCH ×2 (08:54→11:24)
[2019-01-11] MEDS: Metoprolol Tartrate 50 MG TAB PO SCH (09:03)
[2019-01-11] MEDS: Gabapentin 100 MG CAP PO SCH (09:03)
[2019-01-11] MEDS: Colchicine 0.6 MG TAB PO SCH (09:03)
[2019-01-11] MEDS: Allopurinol 300 MG TAB PO SCH (09:03)
[2019-01-11] MEDS: hydrOXYzine 10 MG TAB PO SCH (09:04)
[2019-01-11] MEDS: HumaLOG 300 UNITS/3 ML VIAL SC PRN (11:24)
--- NOTE | 2019-01-11 12:22 | PRG ---
DATE OF SERVICE: 01/11/2019 SUBJECTIVE: The patient is feeling well. He underwent a paracentesis, apparently was small volume paracentesis more of a diagnostic and therapeutic paracentesis. OBJECTIVE: VITAL SIGNS: Temperature 97.5, pulse 81, respiratory rate 16, blood pressure 118/85. CHEST: Clear. CARDIOVASCULAR: Regular rate and rhythm. ABDOMEN: Soft, nontender, protuberant. No change from previous. EXTREMITIES: Normal. LABORATORY DATA: Shows a creatinine 1.56, BUN 28. No fluid results are presently available. ASSESSMENT: 1. Cirrhosis. 2. Ascites. 3. Renal insufficiency-continued improvement. RECOMMENDATIONS: 1. Await peritoneal fluid studies. 2. Stable for discharge from GI standpoint. 3. Outpatient followup with Dr. Cifuentes. Job ID: [id number]
[2019-01-11 12:26] LABS: BF Color Yellow; Body Fluid Source Paracentesis Fluid; Clarity Clear (Clear)
[2019-01-11 12:27] LABS: WBC/NonHematic-Auto 264 /cumm
[2019-01-11 12:47] LABS: BF RBC Count - Manual 590 /cumm
[2019-01-11 12:55] LABS: BF Segmented Neutrophils 12 %; Cell Count Non Hematic 74 %; Lymphocytes 14 %
--- NOTE | 2019-01-11 13:14 | ULT ---
ULTRASOUND-GUIDED PARACENTESIS: CLINICAL INDICATION: Ascites. PROCEDURE: After informed consent had been obtained, the patient was escorted to the ultrasound suite and placed in a supine position. The abdomen was imaged which revealed adequate ascites for the procedure. Th e skin of the abdomen was then prepped and draped in the standard sterile fashion and the skin surfac e, subcutaneous tissues, and peritoneal lining of the abdomen were anesthetized with 1% Lidocaine buf fered with sodium bicarbonate. A right lateral mid abdominal quadrant approach was selected. A smal l skin incision was made at the site of topical anesthesia. Subsequently, under real-time ultrasound guidance a Power Fingerprinting catheter was advanced through the incision site into the peritoneal cavity. Ascites was present at the catheter hub. The catheter was then secured to vacuum sealed sterile containers, via sterile tubing and subsequently 10 mL of clear, yellow ascites was drained from the patient. Th e patient was then removed from the patient. The patient tolerated the procedure well without eviden ce of complication. Postprocedure imaging revealed no complication and interval reduction in volume of ascites. The patient was monitored by a radiology nurse and was stable in condition. IMPRESSION: Technically successful ultrasound-guided paracentesis, as above. Examination was performed, as requested, as a diagnostic paracentesis. Therefore, the collected sampl e was sent to laboratory for further analysis pending laboratory tests submitted by the patient's ord ering physician. POS: AGUSTINA
--- NOTE | 2019-01-11 13:50 | PRG ---
DATE OF SERVICE: 01/11/2019 SUBJECTIVE: A 58-year-old gentleman being seen for acute kidney injury. The patient denies nausea, vomiting, or chest pain. OBJECTIVE: GENERAL: The patient is awake and alert. VITAL SIGNS: Afebrile, pulse 80, breathing 16, and blood pressure 118/85. GENERAL APPEARANCE AND MENTAL STATUS: Fair. HEAD/NECK: Normocephalic. Atraumatic. EYES: EOMI. No deformity. EARS: Clear. No ulcers. NOSE: Intact. No lesions. MOUTH: Clear. No discharge. THROAT: Clear. No exudate. LUNGS: Clear. No crackles. CARDIAC: S1, S2. No rub. ABDOMEN: Benign. Bowel sounds positive. GENITALIA/RECTUM: Sky absent. BACK/EXTREMITIES: Edema 0+. NEUROLOGICAL: Alert and motor intact. SKIN: LYMPHATICS: LABORATORY DATA: Labs show hemoglobin 11.4, creatinine 1.5. ASSESSMENT: Acute kidney injury, improved. Hypertension stable. Anemia stable. Medication based on GFR appropriate. I will sign off on this patient, please reconsult as needed. Job ID: [id number]
[2019-01-11 15:35] VITALS: BP 134/87; TEMP 97.7
--- NOTE | 2019-01-11 20:40 | DIS ---
DATE OF ADMISSION: 01/08/2019 DATE OF DISCHARGE: 01/11/2019 DISCHARGE DIAGNOSES: As of the following; 1. Shortness of breath. 2. Acute kidney injury. 3. Decompensated cirrhosis of the liver. 4. Atrial fibrillation. HOSPITAL COURSE: The patient is a very pleasant 58-year-old male with history of cirrhosis secondary to LOBO, history of atrial fibrillation, currently on anticoagulation, who presented to the hospital with complaints of worsening shortness of breath. 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 However, he had been working till the day he came into the hospital. The patient states that he has been noticing worsening lower extremity swelling and also increased abdominal girth. The patient in the ER was given diuretics, also GI was consulted. He did have abdominal ultrasound, which indicated that he did have a small amount of ascites. At this time, the patient did undergo a paracentesis. His Eliquis was discontinued for about 48 hours. He underwent a paracentesis for diagnostic purposes, only 10 mL of ascites was drained. The patient's paracentesis fluid indicated WBCs of 264; however, he did have RBCs of 590. His albumin is pending. His cytology is pending. He was seen by GI and was okay to go home. The patient also was seen by Nephrology while he was in the hospital. His acute kidney injury improved. MEDICATIONS: The patient's home medications will be as of the following, he is going to be on; 1. Colchicine 0.5 b.i.d. 2. Gabapentin 100 mg b.i.d. 3. Lasix 40 mg daily. 4. Fluoxetine 40 mg daily. 5. Eliquis 5 mg b.i.d. 6. Allopurinol 300 mg b.i.d. 7. Spironolactone 100 mg daily. 8. Omeprazole 40 mg daily. 9. Metoprolol 50 mg b.i.d. 10. Synthroid 200 mcg daily. 11. Glipizide 10 mg b.i.d. 12. Melatonin 3 mg p.o. at bedtime. The patient will follow up with GI and also will follow up with his primary care. I have told him to check his blood sugars and also hold his Eliquis for tonight and restart it tomorrow in the morning. The patient understands these instructions. DISCHARGE PHYSICAL EXAMINATION: VITAL SIGNS: Temperature 97.7, pulse 82, respirations 18, O2 saturations 96% on room air, and blood pressure 134/87. GENERAL: He is awake, alert, and oriented x3. Does not appear in distress. CV: S1, S2 present. No murmurs, rubs, or gallops. ABDOMEN: Obese. Bowel sounds are present x2. No edema to his lower extremities. The patient's creatinine on discharge was 1.56 and his ammonia level was 29. Job ID: [id number]
[2019-01-12] MEDS ORDERED: Furosemide 40 MG/4 ML VIAL SLOW IVP SCH (09:00)
== END 2019-01-11 17:03 | disposition home or self-care (01) | DRG 433 ==
LOC: ERS 15:33 → 2SE 18:00
PROVIDERS: ADMIT Emergency Medicine; ATTEND Emergency Medicine
PROC: 0W9G3ZZ Drainage of Peritoneal Cavity, Percutaneous Approach (ICD-10-PCS; principal; 2019-01-11)
DX: K74.60 Unspecified cirrhosis of liver (principal); N17.9 Acute kidney failure, unspecified; I13.0 Hypertensive heart and chronic kidney disease with heart failure and stage 1 through stage 4 chronic kidney disease, or unspecified chronic kidney disease; R18.8 Other ascites; I50.9 Heart failure, unspecified; N18.9 Chronic kidney disease, unspecified; E11.22 Type 2 diabetes mellitus with diabetic chronic kidney disease; M10.9 Gout, unspecified; E78.5 Hyperlipidemia, unspecified; D64.9 Anemia, unspecified; I48.91 Unspecified atrial fibrillation
CPT/HCPCS: 36415; 36416; 49083; 71045; 76705; 76770; 80048; 80306; 80307; 82140; 82550; 82805; 83690; 83735; 83880; 84100; 84132; 84157; 84443; 84484; 85025; 85060; 85610; 85730; 87070; 87205; 89051; 93005; 93010; 93306; 96374; J1825; J1940; P9047

== ENCOUNTER 2019-01-22 03:46 | Inpatient (IN) | payer SELFPAY ==
[2019-01-22 06:29] LABS: Troponin I 0.011 ng/mL (< 0.028)
[2019-01-22] MEDS ORDERED: Acetaminophen 325 MG TAB PO PRN (08:20)
[2019-01-22] MEDS ORDERED: Dextrose 5% in Water 1,000 ML IV PRN (08:22)
[2019-01-22] MEDS ORDERED: Dextrose 50% Abboject 50 ML SYRINGE SLOW IVP PRN (08:22)
[2019-01-22 09:01] LABS: Troponin I 0.013 ng/mL (< 0.028)
--- NOTE | 2019-01-22 09:46 | HP ---
CHIEF COMPLAINT: Shortness of breath. HISTORY OF PRESENT ILLNESS: This patient is a 58-year-old male who was just discharged from this facility on 01/11/2019. The patient was transferred from [place] [facility] to our facility with a complaint of shortness of breath and dyspnea on exertion. The patient states that on his discharge date of 01/11/2019, he felt well. 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 He also has some related cough, some nausea with occasional vomiting and some diarrhea. He has no specific abdominal pain, but he does have tenderness around the periumbilical area, describing what sounds like pitting edema in that area. He has had no fevers or chills, and he reports that he has been taking his medications. REVIEW OF SYSTEMS: The patient reports that he generally feels cold all the time and his blood sugars running 400 to 500 because he was taken off his metformin previously because of the liver and kidney disease. He cannot take insulin as a commercial truck driver. Otherwise, all systems were reviewed, all pertinent positives and negatives noted in history of present illness. PAST MEDICAL HISTORY: Notable for nonalcoholic steatohepatitis. When the patient was here previously, he had abdominal ultrasound which revealed only a small amount of ascites. There was actually no mention of the liver's appearance or cirrhosis specifically. I believe that the patient has nonalcoholic steatohepatitis resulting in cirrhosis. The patient has chronic kidney disease. Prior diagnosis of congestive heart failure, however, he states that was diagnosed by Dr. Cifuentes on his previous admission here. He is not aware of ever having had an echocardiogram. He has diabetes with diabetic peripheral neuropathy, reflux, hypertension, hyperlipidemia. He also reports that he has coronary artery disease and had a stent about 5 years ago in [place]. Atrial fibrillation, hypothyroidism, and gout. PAST SURGICAL HISTORY: Only notable for the cardiac stent. FAMILY HISTORY: Mother of diabetes complications, had a sister who of diabetes complications. His father of a cerebral aneurysm. SOCIAL HISTORY: The patient is a nonsmoker, although he does continue to use snuff tobacco. He has no alcohol or drug history. He is . He is full code and his is his surrogate decision maker. ALLERGIES: CODEINE AND PENICILLIN. CURRENT MEDICATIONS: 1. Glipizide 10 mg b.i.d. 2. Colchicine 0.5 mg daily. 3. Levothyroxine 200 mcg daily. 4. Gabapentin 100 mg b.i.d. 5. Allopurinol 300 mg b.i.d. 6. Metoprolol 50 mg b.i.d. 7. Lasix 40 mg daily. 8. Aldactone 100 mg daily. 9. Fluoxetine 40 mg daily. 10. Eliquis 5 mg daily. 11. Zyrtec 10 mg daily. PHYSICAL EXAMINATION: VITAL SIGNS: Initial presenting vital signs; BP 142/110, pulse 108, respirations 20, O2 saturation was 96% on 3 L. GENERAL APPEARANCE: The patient appears slightly pale and generally jaundiced. He is awake and alert, in no distress. Pleasant, conversant. HEENT: PERRL. He has no OP lesions, some discoloration of the lower teeth. NECK: Has some evidence of JVD on the right, but not visible on the left. He has no lymphadenopathy and his neck is symmetric and smooth. HEART: Regular rate and rhythm without murmurs, gallops, or rubs. LUNGS: Clear to auscultation with decreased breath sounds at the right base, but no wheezes or rales. ABDOMEN: Protuberant. It is generally soft without significant tenderness to palpation. There are no organs palpable. He does have pitting edema in the area around the navel specially in the lower area. EXTREMITIES: He has no cyanosis, clubbing, or edema. He has some onychomycosis diffusely of the toenails. Pulses are diminished. LABORATORY DATA: White count 15.7, hemoglobin 12.4, platelets 425, neutrophils are actually 75%, 12.8% lymphocytes. He does have some hypochromia, poikilocytosis, anisocytosis and microcytosis. His MCV is 78.6 with an RDW of 16.4. Sodium 137, potassium 4.5, chloride 98, CO2 is 24, BUN 32, creatinine 2.01, glucose 248, calcium 9.0, AST is 35, ALT is 28. Troponin less than 0.01, repeat is 0.011. BNP 2038. Albumin 3.9. Flu screen is negative. Chest x-ray shows worsening volume overload consistent with congestive heart failure. By my read looks like he may have a bit of a small right pleural effusion. IMPRESSION AND PLAN: 1. The patient appears to have acute decompensated congestive heart failure with significant pulmonary edema and elevated BNP of 2037. When he was here previously on the , it was 1558. The patient apparently has been using his diuretics, but is still not accomplishing adequate diuresis. The patient is not aware of ever having had an echocardiogram, although he has been told that he had congestive heart failure before. The nurse indicated the patient received a dose of Lasix in the emergency department and that he is responding well. I do not see documentation of a dose being given in the ER record, but our side of this system indicates he had 40 mg of Lasix IV. He does have 800 mL of urine output documented, subsequent. We will go ahead and obtain the echocardiogram while the patient is here and continue to aggressively diurese. Interestingly, the patient has no peripheral edema at all, but he does have some pitting edema in the lower abdomen and the pulmonary edema. 2. Presumed cirrhosis. The patient did have an abdominal ultrasound here previously, which indicated a small amount of ascites. They actually did not mention the appearance of the liver from that ultrasound and that may have been only looking for ascites. Presumably this is from nonalcoholic steatohepatitis, likely related to diabetes and obesity. I suspect the patient is not having significant decompensation and his albumin is over 4, so it is unlikely that he is having a lot of ascites related to liver disease. 3. Chronic kidney disease. The patient's BUN and creatinine remain elevated today. His creatinine at the time of discharge was at 1.56 and is up to 2.01 today, not exactly sure where his baseline rests, but I assume he is not too far from that. We will continue to monitor with the diuresis. 4. Diabetes mellitus, poorly controlled. The patient reports he has had very high numbers since he has gone off his metformin due to renal and liver disease. His number today is 248. We will give him some sliding scale insulin, Accu-Cheks, and diabetic diet and see where we need to go from there. 5. History of atrial fibrillation. The patient is on Eliquis, and indicates that he has been taking it appropriately. His coags would tend to support that. 6. Hypertension. Continue with his usual home medications including metoprolol. 7. History of gout. Continue with colchicine and allopurinol. 8. Diabetic neuropathy. Continue gabapentin. 9. History of coronary artery disease. The patient is not on aspirin or statin. Certainly with liver concerns, statin might be relatively contraindicated. We will continue to assess that. 10. The patient has some blood dyscrasias with the elevated white count, elevated platelet count with some abnormal morphology of his red cells. We will continue to monitor these, may need some outpatient followup. Job ID: [id number] MTDD
[2019-01-22] MEDS: HumaLOG 300 UNITS/3 ML VIAL SC PRN ×3 (12:39→20:10)
[2019-01-22 12:46] VITALS: BMI 34.9
[2019-01-22] MEDS: Furosemide 40 MG/4 ML VIAL SLOW IVP SCH (13:38)
[2019-01-22] MEDS: glipiZIDE 10 MG TAB PO SCH (20:10)
[2019-01-22] MEDS: Gabapentin 100 MG CAP PO SCH (20:10)
[2019-01-22] MEDS: Apixaban 5 MG TAB PO SCH (20:10)
[2019-01-22] MEDS: Allopurinol 100 MG TAB PO SCH (20:10)
[2019-01-22] MEDS: Metoprolol Tartrate 50 MG TAB PO SCH (20:10)
[2019-01-22] MEDS: Benzonatate 100 MG CAP PO PRN (20:51)
[2019-01-22] MEDS ORDERED: Colchicine 0.6 MG TAB PO SCH (21:00)
[2019-01-23] MEDS: diphenhydrAMINE 25 MG CAP PO PRN ×2 (01:55→09:14)
[2019-01-23] MEDS: Furosemide 40 MG/4 ML VIAL SLOW IVP SCH ×2 (05:32→14:17)
[2019-01-23] MEDS: Levothyroxine Sodium 100 MCG TAB PO SCH (05:32)
[2019-01-23 05:45] LABS: #Lymphocytes 1.3 thou/uL (1.20-3.40); #Monocytes 1.7 thou/uL (0.11-0.59); #Neutrophils 15.1 thou/uL (1.40-6.50); %Basophils 0.1 % (0.0-1.0); %Eosinophils 0.1 % (0.0-10.0); %Lymphocytes 7.2 % (21.0-51.0); %Monocytes 9.2 % (0.0-10.0); %Neutrophils 83.5 % (42.0-75.0); Hemoglobin 12.8 g/dL (14.0-18.0); Mean Corpuscular Hemoglobin 24.3 pg (27.0-31.0); Mean Corpuscular Volume 80.8 fL (78.0-98.0); Mean Platelet Volume 8.9 fL (7.4-10.4); Platelet Count 444 thou/uL (130-400); RBC Distribution Width 17.3 % (11.5-14.5); Red Blood Cell (RBC) Count 5.27 mill/uL (4.70-6.10); White Blood Cell (WBC) Count 18.1 thou/uL (4.8-10.8)
[2019-01-23 05:52] LABS: ALT (SGPT) 27 U/L (8-55); AST (SGOT) 23 U/L (5-34); Albumin 3.9 g/dL (3.5-5.0); Alkaline Phosphatase 125 U/L (40-150); Anion Gap 16 mmol/L (10-20); BUN (Urea Nitrogen) 42 mg/dL (8.4-25.7); Bilirubin, Total 0.5 mg/dL (0.2-1.2); Calc. Creatinine Clearance 73 mL/min (70-130); Calcium 9.4 mg/dL (7.8-10.44); Carbon Dioxide 26 mmol/L (22-29); Chloride 95 mmol/L (98-107); Estimated GFR-MDRD 32; Globulin 3.9 g/dL (2.4-3.5); Glucose 205 mg/dL (70-105); Potassium 4.6 mmol/L (3.5-5.1); Protein, Total 7.8 g/dL (6.0-8.3); Sodium 132 mmol/L (136-145)
[2019-01-23] MEDS ORDERED: Hydrocortisone 1% Cream 30 GM TUBE TOP PRN (08:21)
[2019-01-23] MEDS: Metoprolol Tartrate 50 MG TAB PO SCH ×2 (09:14→20:58)
[2019-01-23] MEDS: Apixaban 5 MG TAB PO SCH ×2 (09:14→20:58)
[2019-01-23] MEDS: Allopurinol 100 MG TAB PO SCH ×2 (09:14→20:59)
[2019-01-23] MEDS: glipiZIDE 10 MG TAB PO SCH ×2 (09:14→20:58)
[2019-01-23] MEDS: Colchicine 0.6 MG TAB PO SCH ×2 (09:15→20:58)
[2019-01-23] MEDS: Gabapentin 100 MG CAP PO SCH ×2 (09:15→20:58)
[2019-01-23] MEDS: Loratadine 10 MG TAB PO SCH (09:15)
[2019-01-23] MEDS: Spironolactone 100 MG TAB PO SCH (09:15)
[2019-01-23] MEDS: FLUoxetine HCl 20 MG CAP PO SCH (10:13)
[2019-01-23] MEDS ORDERED: Vancomycin HCl 1 GM in Premix Bag 1 BAG IVPB SCH (11:30)
--- NOTE | 2019-01-23 11:38 | PDOC.PN ---
- Subjective Encounter Start Date: 01/23/19 Encounter Start Time: 11:34 Still very sob. Coughing up dark discolored sputum. Did not improve much with lasix that was given. Still can't lie down without signif SOB. Generalized pruritus. Did not improve with benadryl. - Objective Resuscitation Status - Order Detail: 01/22/19 08:20 Resuscitation Status Routine Resuscitation Status: FULL: Full Resuscitation Discussed with: Patient Vital Signs & Weight: Vital Signs (12 hours) Temp Pulse Resp BP Pulse Ox 01/23/19 07:56 97.7 F 99 20 134/95 H 92 L 01/23/19 05:06 97.6 F 115 H 20 135/92 H 92 L 01/23/19 04:27 92 L Weight Admit Weight 10.653 oz Weight 303 lb 8 oz I&O: 01/22/19 01/23/19 01/24/19 06:59 06:59 06:59 Intake Total 850 Output Total 1150 425 Balance -300 -425 Result Diagrams: 01/23/19 04:57 01/23/19 04:57 Additional Labs: Accuchecks 01/23/19 01/23/19 01/22/19 10:37 05:33 20:07 POC Glucose 203 H 224 H 426 H 01/22/19 01/22/19 16:21 12:37 POC Glucose 491 H 448 H Phys Exam - Physical Examination Constitutional: NAD modest scattered rales diffusely. Cardiovascular: RRR, no significant murmur Gastrointestinal: soft, non-tender, no distention, positive bowel sounds 1-2+ pitting edema of LLE, less on right. Toes are slightly dusky Neurological: non-focal Psychiatric: normal affect, A&O x 3 Skin: no rash Deviation from normal: Has some older resolving skin lesions on the shoulders. Dx/Plan (1) Acute on chronic systolic and diastolic heart failure, NYHA class 2 Code(s): I50.43 - ACUTE ON CHRONIC COMBINED SYSTOLIC AND DIASTOLIC HRT FAIL Status: Acute (2) Pulmonary edema Code(s): J81.1 - CHRONIC PULMONARY EDEMA Status: Acute (3) Pneumonia Code(s): J18.9 - PNEUMONIA, UNSPECIFIED ORGANISM Status: Acute (4) Cirrhosis Code(s): K74.60 - UNSPECIFIED CIRRHOSIS OF LIVER Status: Acute (5) LOBO (nonalcoholic steatohepatitis) Code(s): K75.81 - NONALCOHOLIC STEATOHEPATITIS (LOBO) Status: Acute (6) Acute worsening of stage 3 chronic kidney disease Code(s): N18.3 - CHRONIC KIDNEY DISEASE, STAGE 3 (MODERATE) Status: Acute (7) Pruritus Code(s): L29.9 - PRURITUS, UNSPECIFIED Status: Acute (8) Diabetes mellitus Code(s): E11.9 - TYPE 2 DIABETES MELLITUS WITHOUT COMPLICATIONS Status: Acute (9) Gout Code(s): M10.9 - GOUT, UNSPECIFIED Status: Acute (10) Cardiomyopathy Code(s): I42.9 - CARDIOMYOPATHY, UNSPECIFIED Status: Acute - Plan * Echo with EF of 30-35%. * Likely ischemic given CAD. * Cards consult. * CXR with diffuse edema. Coughing up discolored sputum, leukocytosis. Afeb. Cover for pneumonia. * Add Cefepime and vanc due to possible hosp acquired pneumonia. * Consult nephrology. * Continue Lasix. Difficult diuresis given cirrhosis and CKD.
[2019-01-23] MEDS: Cefepime 1 GM in Sodium Chloride 0.9% 100 ML IVPB SCH ×2 (13:35→23:08)
--- NOTE | 2019-01-23 16:44 | ULT ---
BILATERAL LOWER EXTREMITY VENOUS DUPLEX SONOGRAM: Date: 01/23/19 HISTORY: Bilateral leg pain and edema. FINDINGS: Each common femoral vein and greater saphenous junction were evaluated along with each femoral and de ep femoral, popliteal, and posterior tibial vein. There is good color and spectral Doppler flow, comp ression, and augmentation. IMPRESSION: No sonographic evidence of deep venous thrombosis within either lower extremity. POS: AGUSTINA
--- NOTE | 2019-01-23 17:13 | CON ---
DATE OF CONSULTATION: HISTORY: Ho Harry is a 58-year-old white male, admitted with cough and increased shortness of breath. He was evaluated by Dr. Rod in 2007 and underwent cardiac catheterization. This revealed normal left ventricular function with ejection fraction of 50% to 55%. There was a 40% to 50% distal LAD stenosis with no evidence of significant disease. Mr. Harry also states that 3 years ago in [place] he had a coronary artery stent placed and that he has "not felt right since." He has atrial fibrillation, which he thinks started after the stent was placed. He apparently has been hospitalized in [place] and has been found to have nonalcoholic steatohepatitis. He was just hospitalized here from January 08 until January 11. He was diuresed. He underwent diagnostic paracentesis, however, only 10 mL of fluid was removed. I do not see a pathology report in [facility]. After he was diuresed, he was discharged. He now was admitted with progressive lower extremity edema, abdominal distention , and dyspnea on exertion. Also has developed cough productive of yellow and brown sputum. He also complains of a pressure type sensation in the lower part of his chest that appears to be pleuritic in nature. PAST MEDICAL HISTORY: Notable for diabetes with blood sugars in the 400 to 500 range. 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 Nonalcoholic steatohepatitis, chronic kidney disease. He thinks he has been told in the past that he has congestive heart failure. He also has chronic atrial fibrillation. Hypertension, hyperlipidemia, hypothyroidism, gout. PAST SURGICAL HISTORY: Coronary artery stent placement in [place] approximately three years ago. HOME MEDICATIONS: 1. Allopurinol 100 b.i.d. 2. Eliquis 5 daily. 3. Zyrtec 10 mg daily. 4. Colchicine 0.5 mg b.i.d. 5. Fluoxetine 40 mg daily. 6. Furosemide 40 mg q.a.m. 7. Neurontin 100 b.i.d. 8. Glipizide 10 b.i.d. 9. Levothyroxine 200 mcg daily. 10. Metoprolol 50 b.i.d. 11. Spironolactone 100 daily. ALLERGIES: CODEINE AND PENICILLIN. SOCIAL HISTORY: He does not smoke, although he does use snuff. He does not drink. 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 FAMILY HISTORY: Negative for coronary artery disease. REVIEW OF SYSTEMS: A 12-point review of systems is otherwise unremarkable. PHYSICAL EXAMINATION: VITAL SIGNS: Blood pressure 125/97, pulse of 102. HEENT: PERRL. NECK: Supple. CHEST: Reveals somewhat decreased breath sounds at the bases but otherwise clear. CARDIOVASCULAR: S1 and S2 normal without any S3, S4, or murmurs. ABDOMEN: Obese. Normal bowel sounds. No tenderness. EXTREMITIES: Revealed 1 to 2+ pretibial edema. DIAGNOSTIC DATA: EKG reveals atrial fibrillation with rate of 107 and left bundle-branch block. Echocardiogram revealed ejection fraction of 35% to 40% with anterior wall akinesis, probable diastolic dysfunction, [id number] left atrial enlargement, mild right atrial enlargement, mild mitral regurgitation, mild tricuspid regurgitation, mild pulmonic insufficiency. LABORATORY DATA: White count 18,100, hemoglobin 12.8, hematocrit 42.6, and platelets 444,000. INR 1.7. Sodium 132, potassium 4.6, chloride 95, carbon dioxide 26, BUN 42, creatinine 2.11, glucose 248. BNP 2038.3. Cardiac enzymes were unremarkable x3. TSH on last admission was normal. IMPRESSION: 1. Probable combined acute on chronic systolic and diastolic heart failure with right pleural effusion and pulmonary edema. 2. Congestive heart failure, ejection fraction of 35% to 40%. 3. Left bundle-branch block. 4. History of coronary artery disease, status post stent placement. 5. Nonalcoholic steatohepatitis with probable cirrhosis. 6. Chronic kidney disease. 7. Diabetes mellitus, poorly controlled. 8. History of hyperlipidemia. 9. Chronic atrial fibrillation. 10. Hypertension. 11. History of gout. 12. Snuff user. PLAN: The patient will be diuresed with close monitoring of renal function. He currently is anticoagulated with Eliquis. Consideration could be given to changing to carvedilol from a heart failure standpoint, however, this probably would not control his atrial fibrillation rate. Consideration may need to be given to biventricular pacing in the future with his left bundle-branch block and left ventricular dysfunction; however, aggressive diuresis needs to be attempted first. Job ID: [id number] [facility]
[2019-01-23] MEDS ORDERED: Furosemide 100 MG/10 ML VIAL SLOW IVP SCH (19:30)
--- NOTE | 2019-01-23 21:04 | CON ---
DATE OF CONSULTATION: REASON FOR CONSULTATION: Elevated creatinine, congestive heart failure, and generalized weakness. HISTORY OF PRESENT ILLNESS: This is a very pleasant 58-year-old gentleman, who was admitted earlier today for dyspnea. The patient has a history of nonalcoholic hepatitis as well as diabetes mellitus. He has had an episode of acute kidney injury. His creatinine had peaked to 2.1 on January 08 and improved to 1.5 and has gradually increased to 2.1 today. The patient has had a renal ultrasound, which showed no hydronephrosis. The patient has a relatively normal albumin of 3.5. PAST MEDICAL HISTORY: Significant for; 1. Nonalcoholic steatohepatitis. 2. Ascites. 3. Congestive heart failure. 4. Diabetes mellitus. 5. Reflux. 6. Hypertension. 7. Coronary artery disease, stent. 8. Atrial fibrillation. 9. Hypothyroidism. 10. Gout. SOCIOECONOMIC HISTORY: The patient is nonsmoker. No drug use. FAMILY HISTORY: Negative for ESRD. ALLERGIES: REVIEWED. HOME MEDICATION: List reviewed. PHYSICAL EXAMINATION: GENERAL: The patient is awake, alert. VITAL SIGNS: Afebrile. Pulse 108, breathing 16, blood pressure 142/110. GENERAL APPEARANCE AND MENTAL STATUS: Fair. HEAD/NECK: Normocephalic. Atraumatic. EYES: EOMI. No deformity. EARS: Clear. No ulcers. NOSE: Intact. No lesions. MOUTH: Clear. No discharge. THROAT: Clear. No exudate. LUNGS: Clear. No crackles. CARDIAC: S1, S2. No rub. ABDOMEN: Benign. Bowel sounds positive. GENITALIA/RECTUM: Sky absent. BACK/EXTREMITIES: Edema 0+. NEUROLOGICAL: Alert and motor intact. SKIN: LYMPHATICS: LABORATORY DATA: Reviewed. ASSESSMENT AND PLAN: 1. Acute kidney injury, chronic kidney disease, multifactorial, most likely due to decreased effective arterial blood volume. Continue diuresis, and we will follow renal function closely. 2. Hypertension, stable. 3. Medication based on GFR appropriate. No indication for dialysis at this time. Job ID: [id number]
[2019-01-23] MEDS ORDERED: Aluminum & Magnesium Hydroxide 60 ML, Lidocaine 2% Viscous Solution 30 ML, diphenhydrAM... SSW PRN (22:42)
[2019-01-23] MEDS: Benzonatate 100 MG CAP PO PRN (23:08)
[2019-01-23] MEDS: Ondansetron ODT 4 MG TAB PO PRN (23:08)
[2019-01-24 05:46] LABS: Anion Gap 16 mmol/L (10-20); BUN (Urea Nitrogen) 49 mg/dL (8.4-25.7); Calc. Creatinine Clearance 75 mL/min (70-130); Calcium 9.2 mg/dL (7.8-10.44); Carbon Dioxide 28 mmol/L (22-29); Chloride 95 mmol/L (98-107); Estimated GFR-MDRD 33; Glucose 173 mg/dL (70-105); Potassium 4.1 mmol/L (3.5-5.1); Sodium 135 mmol/L (136-145)
[2019-01-24] MEDS: Levothyroxine Sodium 100 MCG TAB PO SCH (05:53)
[2019-01-24] MEDS: Furosemide 40 MG/4 ML VIAL SLOW IVP SCH (05:53)
[2019-01-24 09:17] LABS: Anion Gap 18 mmol/L (10-20); BUN (Urea Nitrogen) 48 mg/dL (8.4-25.7); Calc. Creatinine Clearance 77 mL/min (70-130); Calcium 9.3 mg/dL (7.8-10.44); Carbon Dioxide 23 mmol/L (22-29); Chloride 97 mmol/L (98-107); Estimated GFR-MDRD 34; Glucose 127 mg/dL (70-105); Potassium 4.3 mmol/L (3.5-5.1); Sodium 134 mmol/L (136-145)
[2019-01-24] MEDS: glipiZIDE 10 MG TAB PO SCH ×2 (09:40→20:58)
[2019-01-24] MEDS: Apixaban 5 MG TAB PO SCH ×2 (09:40→20:58)
[2019-01-24] MEDS: Ondansetron ODT 4 MG TAB PO PRN (09:40)
[2019-01-24] MEDS: Allopurinol 100 MG TAB PO SCH ×2 (09:40→20:58)
[2019-01-24] MEDS: Loratadine 10 MG TAB PO SCH (09:40)
[2019-01-24] MEDS: Metoprolol Tartrate 50 MG TAB PO SCH ×2 (09:40→20:59)
[2019-01-24] MEDS: Spironolactone 100 MG TAB PO SCH (09:40)
[2019-01-24] MEDS: Gabapentin 100 MG CAP PO SCH ×2 (09:40→20:58)
[2019-01-24] MEDS: diphenhydrAMINE 25 MG CAP PO PRN (09:40)
[2019-01-24] MEDS: FLUoxetine HCl 20 MG CAP PO SCH (09:41)
[2019-01-24 10:47] LABS: Band 9 % (5-11); Eosinophils 2 % (0-10); Hemoglobin 13.6 g/dL (14.0-18.0); Lymphocytes 16 % (21-51); MDiff Complete? YES; Mean Corpuscular Hemoglobin 23.9 pg (27.0-31.0); Mean Corpuscular Volume 79.9 fL (78.0-98.0); Mean Platelet Volume 9.2 fL (7.4-10.4); Monocytes 11 % (0-10); Neutrophil 62 % (42-75); Platelet Count 431 thou/uL (130-400); RBC Distribution Width 17.1 % (11.5-14.5); Red Blood Cell (RBC) Count 5.66 mill/uL (4.70-6.10); White Blood Cell (WBC) Count 19.2 thou/uL (4.8-10.8)
[2019-01-24] MEDS ORDERED: Metolazone 2.5 MG TAB PO SCH (11:15)
--- NOTE | 2019-01-24 11:37 | PRG ---
DATE OF SERVICE: 01/24/2019 SUBJECTIVE: A 58-year-old gentleman being seen for acute kidney injury. The patient denied any nausea, vomiting, or chest pain. OBJECTIVE: CONSTITUTIONAL: On examination, the patient is awake, alert. VITAL SIGNS: Afebrile. Pulse 95, breathing 16, and blood pressure 143/87. GENERAL APPEARANCE AND MENTAL STATUS: Fair. HEAD/NECK: Normocephalic. Atraumatic. EYES: EOMI. No deformity. EARS: Clear. No ulcers. NOSE: Intact. No lesions. MOUTH: Clear. No discharge. THROAT: Clear. No exudate. LUNGS: Clear. No crackles. CARDIAC: S1, S2. No rub. ABDOMEN: Benign. Bowel sounds positive. GENITALIA/RECTUM: Sky absent. BACK/EXTREMITIES: Edema 0+. NEUROLOGICAL: Alert and motor intact. SKIN: LYMPHATICS: LABORATORY DATA: Reviewed. ASSESSMENT AND PLAN: 1. Chronic kidney disease stage 4, stable. 2. Hypertension, stable. 3. Anemia, stable. 4. Congestive heart failure. 5. We will give 1 dose of Zaroxolyn to reduce pulmonary edema. Venogram was negative. No indication for dialysis. Job ID: [id number]
[2019-01-24] MEDS: Cefepime 1 GM in Sodium Chloride 0.9% 100 ML IVPB SCH (12:50)
[2019-01-24] MEDS: Colchicine 0.6 MG TAB PO SCH ×2 (12:50→20:58)
--- NOTE | 2019-01-24 13:35 | PDOC.PN ---
- Subjective Encounter Start Date: 01/24/19 Encounter Start Time: 11:45 Still very tired. Not sleeping well. Does not want to lie down, but prefers to sleep sitting up. Still has cough and it is still productive, but less so. Breathing is slightly better. Pruritus improved. - Objective Resuscitation Status - Order Detail: 01/22/19 08:20 Resuscitation Status Routine Resuscitation Status: FULL: Full Resuscitation Discussed with: Patient Vital Signs & Weight: Vital Signs (12 hours) Temp Pulse Resp BP Pulse Ox 01/24/19 12:00 97.5 F L 75 20 103/57 L 90 L 01/24/19 04:00 97.5 F L 95 20 113/75 93 L Weight Admit Weight 10.653 oz Weight 303 lb 8 oz I&O: 01/23/19 01/24/19 01/25/19 06:59 06:59 06:59 Intake Total 850 540 Output Total 1150 2375 Balance -300 -8618 Result Diagrams: 01/24/19 08:41 01/24/19 08:41 Additional Labs: Accuchecks 01/24/19 01/24/19 01/23/19 10:30 05:41 20:19 POC Glucose 184 H 157 H 175 H 01/23/19 17:34 POC Glucose 163 H Phys Exam - Physical Examination Slightly jaundice. Fatigued. Respiratory: no wheezing, no rhonchi Modest scattered rales bilaterally. Cardiovascular: RRR, no significant murmur, no rub Gastrointestinal: soft, non-tender, no distention, positive bowel sounds large, obese abdomen. 1+ pre tib edema bilat. Just a little somnolent. Psychiatric: normal affect, A&O x 3 Skin: no rash Dx/Plan (1) Acute on chronic systolic and diastolic heart failure, NYHA class 2 Code(s): I50.43 - ACUTE ON CHRONIC COMBINED SYSTOLIC AND DIASTOLIC HRT FAIL Status: Acute (2) Pulmonary edema Code(s): J81.1 - CHRONIC PULMONARY EDEMA Status: Acute (3) Pneumonia Code(s): J18.9 - PNEUMONIA, UNSPECIFIED ORGANISM Status: Acute (4) Cirrhosis Code(s): K74.60 - UNSPECIFIED CIRRHOSIS OF LIVER Status: Acute (5) LOBO (nonalcoholic steatohepatitis) Code(s): K75.81 - NONALCOHOLIC STEATOHEPATITIS (LOBO) Status: Acute (6) Acute worsening of stage 3 chronic kidney disease Code(s): N18.3 - CHRONIC KIDNEY DISEASE, STAGE 3 (MODERATE) Status: Acute (7) Pruritus Code(s): L29.9 - PRURITUS, UNSPECIFIED Status: Acute (8) Diabetes mellitus Code(s): E11.9 - TYPE 2 DIABETES MELLITUS WITHOUT COMPLICATIONS Status: Acute (9) Gout Code(s): M10.9 - GOUT, UNSPECIFIED Status: Acute (10) Cardiomyopathy Code(s): I42.9 - CARDIOMYOPATHY, UNSPECIFIED Status: Acute - Plan * .
[2019-01-24] MEDS ORDERED: Furosemide 100 MG/10 ML VIAL SLOW IVP SCH (13:45)
--- NOTE | 2019-01-24 14:34 | RAD ---
PA AND LATERAL CHEST: Date: 01/24/19 HISTORY: Pulmonary edema. Follow-up evaluation. COMPARISON: 01/22/19. FINDINGS: There has been interval increase in pleural and parenchymal changes at the right lung base, probably related to moderate size right pleural effusion and atelectasis. Superimposed consolidation related t o pneumonia at the right lung base cannot be excluded. The left lung is clear. There has been improve ment in interstitial edema when compared to the prior exam. Pulmonary vasculature also appears less p rominent. No other interval change. IMPRESSION: 1. Interval increase in pleural and parenchymal changes right lung base, probably related to moderat e size right pleural effusion and atelectasis. Superimposed pneumonia is not entirely excluded. 2. Improvement in interstitial edema. POS: ANJUH
[2019-01-24] MEDS: Micafungin 100 MG in Sodium Chloride 0.9% 100 ML IVPB SCH (20:57)
[2019-01-24] MEDS: guaiFENesin ER 600 MG TAB PO SCH (20:59)
[2019-01-25] MEDS: Cefepime 1 GM in Sodium Chloride 0.9% 100 ML IVPB SCH ×2 (00:48→11:56)
--- NOTE | 2019-01-25 01:55 | CON ---
DATE OF CONSULTATION: 01/24/2019 SERVICE: Pulmonary Medicine. REASON FOR CONSULTATION: Pneumonia. HISTORY OF PRESENT ILLNESS: The patient is a 58-year-old white male with past medical history significant for heart disease, cirrhosis, and kidney disease. He was in his usual state of health until when he started having onset of increasing shortness of breath. He feels that this was similar to his prior episodes, in which he got volume overloaded. He had a very significant amounts of purulent sputum production. It was dark green/dark yellow. He presented to the emergency department. He was being diuresed. He had a white blood cell count that started going up. Panculture was obtained, and he ended up getting a sputum as well. The sputum had significant amounts of gram-negative mitzi and yeast growing from it despite the fact that there were 0 to 5 epithelial cells. The question that I was post was is this real or can we treat this like a real infection. The patient denies any current fevers. That being said, he does endorse myalgias, malaise, coryza, and has a sick contact in his . She is at home right now with a swab that is positive for both flu A and flu B. PAST MEDICAL HISTORY: 1. Cirrhosis, secondary to nonalcoholic steatohepatitis. 2. Chronic systolic and diastolic heart failure. 3. Type 2 diabetes mellitus. 4. Diabetic neuropathy. 5. Gastroesophageal reflux disease. 6. Hypertension. 7. Dyslipidemia. 8. Coronary artery disease. 9. Atrial fibrillation. 10. Hypothyroidism. 11. Gout. PAST SURGICAL HISTORY: Percutaneous coronary intervention. FAMILY HISTORY: Noncontributory. SOCIAL HISTORY: He is a lifelong nonsmoker. He does use snuff tobacco. He has no alcohol or significant history of illicit drug use. He is . He denies any exposure to chemicals, dust, asbestos, or tuberculosis. ALLERGIES: CODEINE AND PENICILLIN. MEDICATIONS: List of his inpatient medications was reviewed. Multiple updates were made at this time. REVIEW OF SYSTEMS: General, head, ears, eyes, nose, throat, cardiovascular, respiratory, GI, , musculoskeletal, neurologic, and skin are negative except as mentioned in the HPI. PHYSICAL EXAMINATION: VITAL SIGNS: Afebrile currently. T-minimum 97.4. Pulse 104, blood pressure 123/95, respirations 20, and saturation 94% on room air. GENERAL: The patient is awake and alert, in no apparent distress. LUNGS: Decent air entry on the left. There is decreased air entry at the right base. Rhonchi is present. Crackles are also noted. HEART: Normal rate. Irregular. ABDOMEN: Soft. Distended. Bowel sounds are present. No rebound or guarding is noted. MUSCULOSKELETAL: No cyanosis or clubbing. There is 1 to 2+ pitting in the bilateral lower extremities. NEUROLOGIC: Grossly nonfocal. LABORATORY DATA: WBC 19.2 and up trending, hemoglobin 13.6, and platelets 431, 000. Neutrophil count is 62% on top of 9% bands. Creatinine 2.02 and stable. Blood sugar ranges from 127 to 184. BUN 48. Basic metabolic profile is otherwise unremarkable/stable. C diff antigen and toxin are unremarkable. Respiratory culture is growing normal chelsea. That being said, there seems to be fairly excessive amounts of gram-negative rods and fungal elements despite the fact that he has very few epithelial cells. IMAGING STUDIES: 1. Chest x-ray demonstrates a right lower lobe infiltrate and/or effusion. I cannot tease this pleural parenchymal disease apart. There was previously significant pulmonary vascular congestion, which seems to be improved. There was a miniscule left-sided pleural effusion previously which is essentially resolved. 2. Ultrasound of bilateral lower extremities demonstrates no evidence of DVT. 3. Echocardiogram shows me a 35% to 40% ejection fraction with probable diastolic dysfunction. Anterior wall is akinetic. ASSESSMENT: 1. Acute hypoxic respiratory failure. 2. Cirrhosis with mild decompensation. 3. Chronic kidney disease, stage 3. 4. Acute on chronic systolic and diastolic heart failure. 5. Healthcare-associated pneumonia, suspected. 6. Pleural effusion, suspected. DISCUSSION AND PLAN: I will need to get a CT of the chest without any contrast so that we can further delineate his pleural parenchymal disease. I agree with Dr. Posada. I think that we should treat this like it is a true pneumonia. He is relatively compromised from an immune standpoint. As such, I will treat this gram-negative mitzi, and fungal organisms as true infections. These will both need to be treated for at least 5 days unless we find something else to target. I will send a respiratory virus panel out as the false negative for the flu A and B swab is horrendous. We will add some Mucinex to help liberate some sputum. Pulmonary Critical Care will continue to follow very closely while the patient remains inhouse. 70 minutes have been devoted to this patient in various activities. I personally reviewed all imaging studies and laboratory data noted within this document. For fifty percent of this time, I was interacting with the patient at the bedside or coordinating care with the care team. For the remainder of the time I was immediately available to the patient in the hospital unit. Job ID: [id number] MTDD
[2019-01-25 06:28] LABS: Anion Gap 21 mmol/L (10-20); BUN (Urea Nitrogen) 51 mg/dL (8.4-25.7); Calc. Creatinine Clearance 75 mL/min (70-130); Calcium 9.4 mg/dL (7.8-10.44); Carbon Dioxide 21 mmol/L (22-29); Chloride 99 mmol/L (98-107); Estimated GFR-MDRD 33; Glucose 118 mg/dL (70-105); Potassium 4.5 mmol/L (3.5-5.1); Sodium 136 mmol/L (136-145)
[2019-01-25] MEDS: Furosemide 100 MG/10 ML VIAL SLOW IVP SCH (06:34)
[2019-01-25] MEDS: Levothyroxine Sodium 100 MCG TAB PO SCH (06:34)
[2019-01-25] MEDS: guaiFENesin ER 600 MG TAB PO SCH ×2 (09:49→20:45)
[2019-01-25] MEDS: glipiZIDE 10 MG TAB PO SCH ×2 (09:49→20:45)
[2019-01-25] MEDS: Loratadine 10 MG TAB PO SCH (09:49)
[2019-01-25] MEDS: Metoprolol Tartrate 50 MG TAB PO SCH ×2 (09:50→20:46)
[2019-01-25] MEDS: FLUoxetine HCl 20 MG CAP PO SCH (09:50)
[2019-01-25] MEDS: Colchicine 0.6 MG TAB PO SCH ×2 (09:50→20:45)
[2019-01-25] MEDS: Allopurinol 100 MG TAB PO SCH ×2 (09:50→20:45)
[2019-01-25] MEDS: Spironolactone 100 MG TAB PO SCH (09:50)
[2019-01-25] MEDS: Gabapentin 100 MG CAP PO SCH ×2 (09:51→20:45)
[2019-01-25] MEDS: Apixaban 5 MG TAB PO SCH ×2 (09:51→20:44)
--- NOTE | 2019-01-25 10:33 | CT ---
CT CHEST NONCONTRAST: Date: 01/25/19 HISTORY: Dyspnea. Pleural effusion. Evaluate for pneumonia. FINDINGS: Large amount of right pleural fluid. Consolidation at the right lung base with mild central air bronc hograms, but predominant atelectasis. Upper airways remain patent. Scattered calcified granulomata ar e consistent with healed granulomatous disease. No left pleural fluid. No pneumothorax. Minimal atele ctasis at the right anterior lung base. Lack of contrast limits evaluation of the soft tissues. Scattered about the mediastinum are lymph nod es upper limits of normal in size. There is calcification in the aortic arch and coronary arteries. IMPRESSION: 1. Large amount of right pleural fluid with right lower lobe compressive atelectasis and mild middle lobe atelectasis. No evidence of complication of the fluid. 2. Reactive appearing lymph nodes about the mediastinum. 3. Atherosclerosis. POS: AGUSTINA
--- NOTE | 2019-01-25 11:31 | PRG ---
DATE OF SERVICE: 01/25/2019 SUBJECTIVE: This is a 58-year-old gentleman being seen for acute kidney injury. The patient denied nausea, vomiting, or chest pain. OBJECTIVE: CONSTITUTIONAL: The patient is awake and alert. VITAL SIGNS: Afebrile. Pulse 75, breathing 16, blood pressure 150/93. GENERAL APPEARANCE AND MENTAL STATUS: Fair. HEAD/NECK: Normocephalic. Atraumatic. EYES: EOMI. No deformity. EARS: Clear. No ulcers. NOSE: Intact. No lesions. MOUTH: Clear. No discharge. THROAT: Clear. No exudate. LUNGS: Clear. No crackles. CARDIAC: S1, S2. No rub. ABDOMEN: Benign. Bowel sounds positive. GENITALIA/RECTUM: Sky absent. BACK/EXTREMITIES: Edema 0+. NEUROLOGICAL: Alert and motor intact. SKIN: LYMPHATICS: LABORATORY DATA: Labs show creatinine is 2.0. ASSESSMENT AND PLAN: Acute kidney disease with chronic kidney disease due to cardiorenal syndrome. I gave another dose of metolazone. I have ordered that. Congestive heart failure, stable. Hypertension, stable. Anemia, stable. Medication based on GFR appropriate. The patient is in negative fluid balance. Job ID: [id number]
--- NOTE | 2019-01-25 11:55 | PDOC.PN ---
- Subjective Encounter Start Date: 01/25/19 Encounter Start Time: 11:46 Still coughing. Breathing has not significantly improved. Has been voiding well. No sore throat other than from coughing - mild. - Objective Resuscitation Status - Order Detail: 01/22/19 08:20 Resuscitation Status Routine Resuscitation Status: FULL: Full Resuscitation Discussed with: Patient Vital Signs & Weight: Vital Signs (12 hours) Temp Pulse Resp BP Pulse Ox 01/25/19 08:57 97.6 F 80 22 H 150/93 H 94 L 01/25/19 08:00 94 L 01/25/19 04:00 97.8 F 81 20 139/94 H 95 Weight Admit Weight 10.653 oz Weight 303 lb 8 oz I&O: 01/24/19 01/25/19 01/26/19 06:59 06:59 06:59 Intake Total 540 1828 Output Total 2375 3925 Balance -9643 -3058 Result Diagrams: 01/24/19 08:41 01/25/19 04:30 Additional Labs: Accuchecks 01/25/19 01/25/19 01/24/19 10:50 05:35 20:51 POC Glucose 214 H 115 H 134 H 01/24/19 17:09 POC Glucose 104 Phys Exam - Physical Examination Constitutional: NAD Still sitting on bedside with head down. Respiratory: no wheezing, no rales Diminished, summer at right base. Cardiovascular: RRR, no significant murmur Gastrointestinal: soft, non-tender, no distention, positive bowel sounds Obese Trace edema Neurological: non-focal Psychiatric: normal affect, A&O x 3 Dx/Plan (1) Acute on chronic systolic and diastolic heart failure, NYHA class 2 Code(s): I50.43 - ACUTE ON CHRONIC COMBINED SYSTOLIC AND DIASTOLIC HRT FAIL Status: Acute (2) Pulmonary edema Code(s): J81.1 - CHRONIC PULMONARY EDEMA Status: Acute (3) Pneumonia Code(s): J18.9 - PNEUMONIA, UNSPECIFIED ORGANISM Status: Acute Comment: Sputum growing GNR and yeast (4) Cirrhosis Code(s): K74.60 - UNSPECIFIED CIRRHOSIS OF LIVER Status: Acute (5) LOBO (nonalcoholic steatohepatitis) Code(s): K75.81 - NONALCOHOLIC STEATOHEPATITIS (LOBO) Status: Acute (6) Acute worsening of stage 3 chronic kidney disease Code(s): N18.3 - CHRONIC KIDNEY DISEASE, STAGE 3 (MODERATE) Status: Acute (7) Pruritus Code(s): L29.9 - PRURITUS, UNSPECIFIED Status: Acute (8) Diabetes mellitus Code(s): E11.9 - TYPE 2 DIABETES MELLITUS WITHOUT COMPLICATIONS Status: Acute (9) Gout Code(s): M10.9 - GOUT, UNSPECIFIED Status: Acute (10) Cardiomyopathy Code(s): I42.9 - CARDIOMYOPATHY, UNSPECIFIED Status: Acute (11) Pleural effusion Code(s): J90 - PLEURAL EFFUSION, NOT ELSEWHERE CLASSIFIED Status: Acute - Plan * Large R pleural effusion. Persists in spite of some diuresis. Defer to Dr. Landin regarding possible tap. * Continue with Roceph/Azith/Micafungin for pneumonia. No major infiltrate on CT, but significant amount of compressed lung. * Renal function stable. * Continue diuresis. * Blood sugars adequate.
[2019-01-25] MEDS: HumaLOG 300 UNITS/3 ML VIAL SC PRN ×2 (11:57→18:17)
[2019-01-25] MEDS ORDERED: Metolazone 2.5 MG TAB PO SCH (12:00)
[2019-01-25] MEDS: Furosemide 40 MG/4 ML VIAL SLOW IVP SCH (15:59)
[2019-01-25] MEDS: Micafungin 100 MG in Sodium Chloride 0.9% 100 ML IVPB SCH (18:16)
--- NOTE | 2019-01-25 21:46 | PRG ---
DATE OF SERVICE: 01/25/2019 SERVICE: Pulmonary Medicine. INTERVAL HISTORY: The patient is doing fine from respiratory standpoint. He is breathing okay. He has a little bit of a cough. No overnight events are registered. Otherwise, he is looking forward to getting out of here just as soon as possible. PHYSICAL EXAMINATION: VITAL SIGNS: Afebrile, pulse 86, blood pressure 134/82, respirations 20, saturation 96% on 3 L nasal cannula. GENERAL: The patient is awake and alert, in no apparent distress. LUNGS: Excellent air entry. There is decreased air entry at the right base, however. No prolonged expiratory phase or wheezing is appreciated. Rhonchi are noted in extensive. HEART: Normal rate, regular. ABDOMEN: Soft, nontender, nondistended. Bowel sounds are positive. MUSCULOSKELETAL: No cyanosis or clubbing. There is diffuse 2+ pitting throughout. GENITOURINARY: No Sky catheter in place. NEUROLOGIC: Grossly nonfocal. LABORATORY DATA: WBC 19.2, hemoglobin 13.6, and platelets 431,000. Creatinine 2.07 and roughly stable, BUN 51, gently up trending. Anion gap 21, bicarb 21. Basic metabolic profile is otherwise unremarkable. Respiratory virus panel was previously unremarkable. Respiratory culture, and C. diff antigen and toxin are negative. IMAGING: CT of the chest demonstrates a large right-sided pleural effusion. In addition to this, he has extensive infiltrate, in the right middle lobe. I do not think that is atelectasis. The air bronchograms in a large volume of distribution there are the tip off to me believing this is a true infiltrate. In addition to this, he has a moderate-sized right-sided pleural effusion. ASSESSMENT: 1. Acute hypoxic respiratory failure. 2. Healthcare-associated pneumonia. 3. Pleural effusion on the right. 4. Cirrhosis with mild decompensation. 5. Chronic kidney disease, stage 3. 6. Acute on chronic systolic and diastolic heart failure. DISCUSSION AND PLAN: I do believe this is a true infiltrate/infection. Respiratory culture grew normal chelsea. That being said, that can create a problem in somebody who is immunocompromised. I would treat with a full 7-day course of antibiotic. I will prepare for thoracentesis tomorrow morning to make certain that this space is not involved. Pulmonary Critical Care will continue to follow along while we continue supportive care through time. We will need to continue to diurese him. Job ID: [id number] MTDD
[2019-01-26] MEDS: Cefepime 1 GM in Sodium Chloride 0.9% 100 ML IVPB SCH ×3 (05:09→17:59)
[2019-01-26] MEDS: Furosemide 100 MG/10 ML VIAL SLOW IVP SCH (05:26)
[2019-01-26] MEDS: Levothyroxine Sodium 100 MCG TAB PO SCH (05:29)
[2019-01-26 06:56] LABS: Anion Gap 18 mmol/L (10-20); BUN (Urea Nitrogen) 49 mg/dL (8.4-25.7); Calc. Creatinine Clearance 69 mL/min (70-130); Calcium 9.9 mg/dL (7.8-10.44); Carbon Dioxide 29 mmol/L (22-29); Chloride 94 mmol/L (98-107); Estimated GFR-MDRD 32; Glucose 122 mg/dL (70-105); Potassium 3.9 mmol/L (3.5-5.1); Sodium 137 mmol/L (136-145)
--- NOTE | 2019-01-26 07:42 | PDOC.PN ---
- Subjective Encounter Start Date: 01/26/19 Encounter Start Time: 07:40 Subjective: still has cough, sob - Objective Resuscitation Status - Order Detail: 01/22/19 08:20 Resuscitation Status Routine Resuscitation Status: FULL: Full Resuscitation Discussed with: Patient JOSELITO Reviewed: Yes Vital Signs & Weight: Vital Signs (12 hours) Temp Pulse Resp Pulse Ox 01/26/19 04:00 97.8 F 74 18 95 Weight Admit Weight 10.653 oz Weight 283 lb 3.2 oz I&O: 01/25/19 01/26/19 01/27/19 06:59 06:59 06:59 Intake Total 1828 1295 Output Total 3924 4300 Balance -6917 -9098 Result Diagrams: 01/24/19 08:41 01/26/19 06:03 Additional Labs: Accuchecks 01/26/19 01/25/19 01/25/19 05:39 20:28 16:50 POC Glucose 147 H 156 H 168 H 01/25/19 10:50 POC Glucose 214 H Phys Exam - Physical Examination Neck: no JVD Respiratory: clear to auscultation bilateral dull to percussion R base Cardiovascular: no significant murmur, irregular Gastrointestinal: soft, positive bowel sounds Musculoskeletal: no edema Dx/Plan (1) Acute on chronic systolic and diastolic heart failure, NYHA class 2 Code(s): I50.43 - ACUTE ON CHRONIC COMBINED SYSTOLIC AND DIASTOLIC HRT FAIL Status: Acute (2) Cardiomyopathy Code(s): I42.9 - CARDIOMYOPATHY, UNSPECIFIED Status: Chronic Qualifiers: Cardiomyopathy type: unspecified Qualified Code(s): I42.9 - Cardiomyopathy , unspecified (3) Cirrhosis Code(s): K74.60 - UNSPECIFIED CIRRHOSIS OF LIVER Status: Acute Qualifiers: Hepatic cirrhosis type: other cirrhosis Qualified Code(s): K74.69 - Other cirrhosis of liver (4) Diabetes mellitus Code(s): E11.9 - TYPE 2 DIABETES MELLITUS WITHOUT COMPLICATIONS Status: Acute Qualifiers: Diabetes mellitus type: type 2 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 use: without termite control service representative use Diabetes mellitus complication status: with kidney complications Diabetes mellitus complication detail: with chronic kidney disease Chronic kidney disease stage: stage 3 (moderate) Qualified Code(s): E11.22 - Type 2 diabetes mellitus with diabetic chronic kidney disease; N18.3 - Chronic kidney disease, stage 3 (moderate) (5) LOBO (nonalcoholic steatohepatitis) Code(s): K75.81 - NONALCOHOLIC STEATOHEPATITIS (LOBO) Status: Acute (6) Pneumonia Code(s): J18.9 - PNEUMONIA, UNSPECIFIED ORGANISM Status: Acute Qualifiers: Pneumonia type: due to unspecified organism Laterality: right Lung location: middle lobe of lung Qualified Code(s): J18.1 - Lobar pneumonia, unspecified organism Comment: Sputum growing GNR and yeast (7) Afib Code(s): I48.91 - UNSPECIFIED ATRIAL FIBRILLATION Status: Chronic (8) SOB (shortness of breath) Code(s): R06.02 - SHORTNESS OF BREATH Status: Acute - Plan cont iv antibx -: thoracentesis today, discuss with Dr Landin -: cont ACCU/SS -: cont diuresis, b-[place], no LEYDI/ARB due to ckd3 * .
--- NOTE | 2019-01-26 09:49 | PRG ---
DATE OF SERVICE: 01/26/2019 SUBJECTIVE: A 58-year-old gentleman, being seen for acute kidney injury. The patient denied nausea, vomiting, or chest pain. OBJECTIVE: CONSTITUTIONAL: The patient is awake and alert. VITAL SIGNS: Afebrile, pulse 80, breathing 16, blood pressure 135/81. GENERAL APPEARANCE AND MENTAL STATUS: Fair. HEAD/NECK: Normocephalic. Atraumatic. EYES: EOMI. No deformity. EARS: Clear. No ulcers. NOSE: Intact. No lesions. MOUTH: Clear. No discharge. THROAT: Clear. No exudate. LUNGS: Clear. No crackles. CARDIAC: S1, S2. No rub. ABDOMEN: Benign. Bowel sounds positive. GENITALIA/RECTUM: Sky absent. BACK/EXTREMITIES: Edema 0+. NEUROLOGICAL: Alert and motor intact. SKIN: LYMPHATICS: LABORATORY DATA: Labs show creatinine 2.1. ASSESSMENT AND PLAN: 1. Chronic kidney disease, stage 3, stable. 2. Hypertension, stable. 3. Anemia, stable. 4. No indication for dialysis. Continue diuresis with metolazone every other day. Continue Lasix as well. Job ID: [id number]
[2019-01-26] MEDS: Apixaban 5 MG TAB PO SCH ×2 (11:29→20:50)
[2019-01-26] MEDS: Metoprolol Tartrate 50 MG TAB PO SCH ×2 (11:30→20:51)
[2019-01-26] MEDS: FLUoxetine HCl 20 MG CAP PO SCH (11:30)
[2019-01-26] MEDS: Loratadine 10 MG TAB PO SCH (11:30)
[2019-01-26] MEDS: glipiZIDE 10 MG TAB PO SCH ×2 (11:30→20:51)
[2019-01-26] MEDS: guaiFENesin ER 600 MG TAB PO SCH ×2 (11:31→20:51)
[2019-01-26] MEDS: Allopurinol 100 MG TAB PO SCH ×2 (11:31→20:50)
[2019-01-26] MEDS: Gabapentin 100 MG CAP PO SCH ×2 (11:31→20:50)
[2019-01-26] MEDS: Spironolactone 100 MG TAB PO SCH (11:31)
[2019-01-26] MEDS: Colchicine 0.6 MG TAB PO SCH ×2 (11:31→20:50)
[2019-01-26 12:00] LABS: Body Fluid Source Thoracentesis Fluid; Clarity Hazy (Clear)
[2019-01-26 12:01] LABS: BF Color Yellow; Tube # 2
[2019-01-26 12:02] LABS: RBC Background Count 0.006; WBC Background Count 0.01
[2019-01-26 12:03] LABS: Pleural Fluid, Protein 4.2 g/dL; WBC/NonHematic-Auto 594 /cumm
--- NOTE | 2019-01-26 12:45 | PRG ---
DATE OF SERVICE: 01/26/2019 SERVICE: Pulmonary Medicine. INTERVAL HISTORY: The patient is doing fine from respiratory standpoint. Breathing comfortably. He denies any current chest pain, fevers, or chills. He is responding to diuretics. Otherwise, there has been no interval change to his condition. PHYSICAL EXAMINATION: VITAL SIGNS: Afebrile, pulse 88, blood pressure 121/73, respirations 20, saturation 95% on 2 L nasal cannula. GENERAL: The patient is awake and alert, in no apparent distress. LUNGS: Excellent air entry. There is decreased air entry at the right base. Rhonchi are present. No prolonged expiratory phase is otherwise appreciated. HEART: Normal rate. Regular. ABDOMEN: Soft, nontender, nondistended. Bowel sounds are positive. MUSCULOSKELETAL: No cyanosis or clubbing. There is 1 to 2+ pitting in the bilateral lower extremities, which is improving. NEUROLOGIC: Grossly nonfocal. LABORATORY DATA: Creatinine 2.1 and stable, BUN 49. Basic metabolic profile is otherwise unremarkable. Body fluid culture shows an LDH of 122, glucose 175, total protein 4.2. Differential is currently pending. PH is certainly within the normal limits. Respiratory virus panel was previously unremarkable. The sputum culture was growing normal [place], but included quite significant amount of gram-negative rods and yeast. ASSESSMENT: 1. Acute hypoxic respiratory failure, resolving. 2. Healthcare-associated pneumonia. 3. Pleural effusion on the right, likely pseudoexudate. 4. Cirrhosis with mild decompensation. 5. Chronic kidney disease, stage 3. 6. Acute on chronic systolic and diastolic heart failure. PLAN: A 7-day course of antibiotics is indicated for the infiltrate. I do think it is reasonable to transition him over to monotherapy with p.o. Levaquin and fluconazole to complete his course of therapy. That being said, so long as he remains in-house, we will continue our current antibiotic selection. Thoracentesis is performed. From a purely respiratory standpoint, he will be ready for discharge from the hospital once the other specialists deem it appropriate. Pulmonary will continue to follow, intermittently while the patient remains inhouse. Job ID: [id number]
--- NOTE | 2019-01-26 12:50 | OP ---
DATE OF PROCEDURE: 01/26/2019 SERVICE: Pulmonary Medicine. PROCEDURE PERFORMED: Right-sided pleural drainage with catheter insertion under ultrasound guidance. CONSENT: The risks and benefits of this procedure were explained to the patient. All questions were answered and alternative options explained. MEDICATIONS USED: Lidocaine 1% without epinephrine, total quantity 8 mL. PREOPERATIVE DIAGNOSES: 1. Pleural effusion. 2. Healthcare-associated pneumonia. POSTOPERATIVE DIAGNOSES: 1. Pleural effusion. 2. Healthcare-associated pneumonia. DESCRIPTION OF PROCEDURE: Time-out was performed by the procedure team and patient. The patient was positively identified using name and date of . The procedure site was marked. Vital sign monitoring was accomplished by noninvasive hemodynamic monitoring, pulse oximetry, and telemetry. In the seated position, the right posterior hemothorax was examined using ultrasound probe. The diaphragm and pleural fluid were easily identified. The skin was prepped and draped in sterile fashion and anesthetized with 1% lidocaine without epinephrine. A finder needle was inserted in the pleural space with return of crystal clear yellow fluid. A pleural drainage catheter was inserted in the same location. A total quantity of 900 mL of pleural fluid was withdrawn by syringe pump technique. Sample was sent for analysis. Evacuation of fluid was terminated because the patient had a coughing fit that did not resolve quickly. At the end of the procedure, estimated pleural pressures, measured by manometry, was -15 cm of pleural fluid. The intact catheter was withdrawn on exhalation and a sterile dressing was applied. The patient had stable vitals throughout the entire procedure. ESTIMATED BLOOD LOSS: Less than 1 mL. COMPLICATIONS: None. Job ID: [id number]
[2019-01-26 12:59] LABS: BF RBC Count - Manual 199 /cumm
[2019-01-26 13:32] LABS: Cell Count Non Hematic 78 %
[2019-01-26 13:36] LABS: BF Segmented Neutrophils 17 %; Lymphocytes 5 %
[2019-01-26] MEDS: Furosemide 40 MG/4 ML VIAL SLOW IVP SCH (14:00)
[2019-01-26] MEDS: HumaLOG 300 UNITS/3 ML VIAL SC PRN (17:59)
[2019-01-26] MEDS: Micafungin 100 MG in Sodium Chloride 0.9% 100 ML IVPB SCH (17:59)
[2019-01-27] MEDS: Furosemide 100 MG/10 ML VIAL SLOW IVP SCH (05:26)
[2019-01-27] MEDS: Levothyroxine Sodium 100 MCG TAB PO SCH (05:26)
[2019-01-27] MEDS: Cefepime 1 GM in Sodium Chloride 0.9% 100 ML IVPB SCH ×2 (05:26→18:28)
[2019-01-27 05:57] LABS: Anion Gap 16 mmol/L (10-20); BUN (Urea Nitrogen) 47 mg/dL (8.4-25.7); Calc. Creatinine Clearance 75 mL/min (70-130); Calcium 9.4 mg/dL (7.8-10.44); Carbon Dioxide 34 mmol/L (22-29); Chloride 91 mmol/L (98-107); Estimated GFR-MDRD 38; Glucose 121 mg/dL (70-105); Potassium 4.2 mmol/L (3.5-5.1); Sodium 137 mmol/L (136-145)
--- NOTE | 2019-01-27 08:36 | PDOC.PN ---
- Subjective Encounter Start Date: 01/27/19 Encounter Start Time: 08:34 Subjective: minimal cough, no wheezing - Objective Resuscitation Status - Order Detail: 01/22/19 08:20 Resuscitation Status Routine Resuscitation Status: FULL: Full Resuscitation Discussed with: Patient JOSELITO Reviewed: Yes Vital Signs & Weight: Vital Signs (12 hours) Temp Pulse Resp BP Pulse Ox 01/27/19 03:49 97.6 F 87 18 128/86 97 Weight Admit Weight 10.653 oz Weight 270 lb 3.2 oz I&O: 01/26/19 01/27/19 01/28/19 06:59 06:59 06:59 Intake Total 1295 480 Output Total 4300 650 Balance -0675 -170 Result Diagrams: 01/24/19 08:41 01/27/19 05:01 Additional Labs: Accuchecks 01/27/19 01/26/19 01/26/19 05:20 20:13 17:04 POC Glucose 124 H 145 H 245 H 01/26/19 10:59 POC Glucose 225 H Phys Exam - Physical Examination Neck: no JVD dullness L base OW clear Cardiovascular: RRR, no significant murmur Gastrointestinal: soft, positive bowel sounds Musculoskeletal: no edema Dx/Plan (1) Acute on chronic systolic and diastolic heart failure, NYHA class 2 Code(s): I50.43 - ACUTE ON CHRONIC COMBINED SYSTOLIC AND DIASTOLIC HRT FAIL Status: Acute (2) Cardiomyopathy Code(s): I42.9 - CARDIOMYOPATHY, UNSPECIFIED Status: Chronic Qualifiers: Cardiomyopathy type: unspecified Qualified Code(s): I42.9 - Cardiomyopathy , unspecified (3) Cirrhosis Code(s): K74.60 - UNSPECIFIED CIRRHOSIS OF LIVER Status: Acute Qualifiers: Hepatic cirrhosis type: other cirrhosis Qualified Code(s): K74.69 - Other cirrhosis of liver (4) Diabetes mellitus Code(s): E11.9 - TYPE 2 DIABETES MELLITUS WITHOUT COMPLICATIONS Status: Acute Qualifiers: Diabetes mellitus type: type 2 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 mellitus oysterman insulin use: without senior care use Diabetes mellitus complication status: with kidney complications Diabetes mellitus complication detail: with chronic kidney disease Chronic kidney disease stage: stage 3 (moderate) Qualified Code(s): E11.22 - Type 2 diabetes mellitus with diabetic chronic kidney disease; N18.3 - Chronic kidney disease, stage 3 (moderate) (5) LOBO (nonalcoholic steatohepatitis) Code(s): K75.81 - NONALCOHOLIC STEATOHEPATITIS (LOBO) Status: Acute (6) Pneumonia Code(s): J18.9 - PNEUMONIA, UNSPECIFIED ORGANISM Status: Acute Qualifiers: Pneumonia type: due to unspecified organism Laterality: right Lung location: middle lobe of lung Qualified Code(s): J18.1 - Lobar pneumonia, unspecified organism Comment: Sputum growing GNR and yeast (7) Afib Code(s): I48.91 - UNSPECIFIED ATRIAL FIBRILLATION Status: Chronic (8) SOB (shortness of breath) Code(s): R06.02 - SHORTNESS OF BREATH Status: Acute (9) Parapneumonic effusion Code(s): J18.9 - PNEUMONIA, UNSPECIFIED ORGANISM; J91.8 - PLEURAL EFFUSION IN OTHER CONDITIONS CLASSIFIED ELSEWHERE Status: Acute - Plan cont antibx, iv diuresis -: cont metoprolol, eliquis, spironolactone -: discuss with pulmonology, cardiology * .
[2019-01-27] MEDS: glipiZIDE 10 MG TAB PO SCH ×2 (09:26→20:47)
[2019-01-27] MEDS: FLUoxetine HCl 20 MG CAP PO SCH (09:26)
[2019-01-27] MEDS: Metoprolol Tartrate 50 MG TAB PO SCH ×2 (09:26→20:51)
[2019-01-27] MEDS: guaiFENesin ER 600 MG TAB PO SCH ×2 (09:26→20:47)
[2019-01-27] MEDS: Spironolactone 100 MG TAB PO SCH (09:27)
[2019-01-27] MEDS: Allopurinol 100 MG TAB PO SCH ×2 (09:27→20:43)
[2019-01-27] MEDS: Loratadine 10 MG TAB PO SCH (09:27)
[2019-01-27] MEDS: Colchicine 0.6 MG TAB PO SCH ×2 (09:27→20:42)
[2019-01-27] MEDS: Gabapentin 100 MG CAP PO SCH ×2 (09:27→20:43)
[2019-01-27] MEDS: Apixaban 5 MG TAB PO SCH ×2 (09:27→20:48)
[2019-01-27] MEDS: HumaLOG 300 UNITS/3 ML VIAL SC PRN (11:39)
--- NOTE | 2019-01-27 12:16 | PRG ---
DATE OF SERVICE: 01/27/2019 SUBJECTIVE: A 58-year-old gentleman being seen for acute kidney injury. The patient denies nausea, vomiting, or chest pain. OBJECTIVE: GENERAL: The patient is awake and alert. VITAL SIGNS: Pulse , breathing 16, blood pressure 128/66. GENERAL APPEARANCE AND MENTAL STATUS: Fair. HEAD/NECK: Normocephalic. Atraumatic. EYES: EOMI. No deformity. EARS: Clear. No ulcers. NOSE: Intact. No lesions. MOUTH: Clear. No discharge. THROAT: Clear. No exudate. LUNGS: Clear. No crackles. CARDIAC: S1, S2. No rub. ABDOMEN: Benign. Bowel sounds positive. GENITALIA/RECTUM: Sky absent. BACK/EXTREMITIES: Edema 0+. NEUROLOGICAL: Alert and motor intact. SKIN: LYMPHATICS: LABORATORY DATA: Hemoglobin is 13.6. Creatinine 1.8. ASSESSMENT: 1. Acute kidney injury, improved. 2. Chronic kidney disease, stage 3, stable. 3. Hypertension, stable. PLAN: I will sign off on this patient. Please continue diuretics with close monitoring of labs. No indication for dialysis. The patient can follow up as outpatient in clinic in 1-2 weeks after discharge. Job ID: [id number]
[2019-01-27] MEDS: Furosemide 40 MG/4 ML VIAL SLOW IVP SCH (15:02)
[2019-01-27] MEDS ORDERED: Saccharomyces boulardii 250 MG CAP PO SCH (18:45)
[2019-01-27] MEDS: Micafungin 100 MG in Sodium Chloride 0.9% 100 ML IVPB SCH (20:54)
[2019-01-28] MEDS: Cefepime 1 GM in Sodium Chloride 0.9% 100 ML IVPB SCH (05:07)
[2019-01-28] MEDS: Furosemide 100 MG/10 ML VIAL SLOW IVP SCH (05:09)
[2019-01-28] MEDS: Levothyroxine Sodium 100 MCG TAB PO SCH (05:10)
[2019-01-28 05:18] LABS: Anion Gap 15 mmol/L (10-20); BUN (Urea Nitrogen) 45 mg/dL (8.4-25.7); Calc. Creatinine Clearance 88 mL/min (70-130); Calcium 9.8 mg/dL (7.8-10.44); Carbon Dioxide 36 mmol/L (22-29); Chloride 90 mmol/L (98-107); Estimated GFR-MDRD 45; Glucose 127 mg/dL (70-105); Potassium 3.7 mmol/L (3.5-5.1); Sodium 137 mmol/L (136-145)
--- NOTE | 2019-01-28 08:37 | PDOC.PN ---
- Subjective Encounter Start Date: 01/28/19 Encounter Start Time: 08:36 Subjective: ready to go hpome - Objective Resuscitation Status - Order Detail: 01/22/19 08:20 Resuscitation Status Routine Resuscitation Status: FULL: Full Resuscitation Discussed with: Patient JOSELITO Reviewed: Yes Vital Signs & Weight: Vital Signs (12 hours) Temp Pulse Resp BP Pulse Ox 01/28/19 04:00 99 F 80 16 96/57 L 92 L Weight Admit Weight 10.653 oz Weight 265 lb 6.4 oz I&O: 01/27/19 01/28/19 01/29/19 06:59 06:59 06:59 Intake Total 2034 1434 Output Total 5346 1120 Balance -3312 314 Result Diagrams: 01/24/19 08:41 01/28/19 04:12 Additional Labs: Accuchecks 01/28/19 01/27/19 01/27/19 05:54 20:11 16:41 POC Glucose 143 H 183 H 161 H 01/27/19 10:39 POC Glucose 194 H Phys Exam - Physical Examination Neck: no JVD Respiratory: clear to auscultation bilateral Cardiovascular: RRR, no significant murmur Gastrointestinal: soft, positive bowel sounds Musculoskeletal: no edema Dx/Plan (1) Acute on chronic systolic and diastolic heart failure, NYHA class 2 Code(s): I50.43 - ACUTE ON CHRONIC COMBINED SYSTOLIC AND DIASTOLIC HRT FAIL Status: Acute (2) Cardiomyopathy Code(s): I42.9 - CARDIOMYOPATHY, UNSPECIFIED Status: Chronic Qualifiers: Cardiomyopathy type: unspecified Qualified Code(s): I42.9 - Cardiomyopathy , unspecified (3) Cirrhosis Code(s): K74.60 - UNSPECIFIED CIRRHOSIS OF LIVER Status: Acute Qualifiers: Hepatic cirrhosis type: other cirrhosis Qualified Code(s): K74.69 - Other cirrhosis of liver (4) Diabetes mellitus Code(s): E11.9 - TYPE 2 DIABETES MELLITUS WITHOUT COMPLICATIONS Status: Acute Qualifiers: Diabetes mellitus type: type 2 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 use: without alf use Diabetes mellitus complication status: with kidney complications Diabetes mellitus complication detail: with chronic kidney disease Chronic kidney disease stage: stage 3 (moderate) Qualified Code(s): E11.22 - Type 2 diabetes mellitus with diabetic chronic kidney disease; N18.3 - Chronic kidney disease, stage 3 (moderate) (5) LOBO (nonalcoholic steatohepatitis) Code(s): K75.81 - NONALCOHOLIC STEATOHEPATITIS (LOBO) Status: Acute (6) Pneumonia Code(s): J18.9 - PNEUMONIA, UNSPECIFIED ORGANISM Status: Acute Qualifiers: Pneumonia type: due to unspecified organism Laterality: right Lung location: middle lobe of lung Qualified Code(s): J18.1 - Lobar pneumonia, unspecified organism Comment: Sputum growing GNR and yeast (7) Afib Code(s): I48.91 - UNSPECIFIED ATRIAL FIBRILLATION Status: Chronic (8) SOB (shortness of breath) Code(s): R06.02 - SHORTNESS OF BREATH Status: Acute (9) Parapneumonic effusion Code(s): J18.9 - PNEUMONIA, UNSPECIFIED ORGANISM; J91.8 - PLEURAL EFFUSION IN OTHER CONDITIONS CLASSIFIED ELSEWHERE Status: Acute - Plan discuss with cardiology, appears baseline * .
[2019-01-28] MEDS ORDERED: Saccharomyces boulardii 250 MG CAP PO SCH (09:00)
[2019-01-28] MEDS ORDERED: Fluconazole 100 MG TAB PO SCH (09:00)
--- NOTE | 2019-01-28 09:12 | PRG ---
DATE OF SERVICE: 01/27/2019 SERVICE: Pulmonary Medicine. INTERVAL HISTORY: The patient is doing fine from a respiratory standpoint. Breathing comfortably. There has been no interval change to his condition. His breathing is actually a little bit improved. He had a coughing fit following the thoracentesis. He has yet to really settled down back to no cough. It is nonproductive. PHYSICAL EXAMINATION: VITAL SIGNS: Afebrile, pulse 80, blood pressure 96/57, respirations 16, saturation 92% on room air, 97% on 1.5 L nasal cannula. HEENT: Normocephalic and atraumatic. Sclerae white. Conjunctivae pink. Oral mucosa is moist without lesions. LUNGS: Decent air entry. Crackles and rhonchi are both present in the right base. No prolonged expiratory phase or wheezing is appreciated. HEART: Normal rate regular. ABDOMEN: Soft, nontender, nondistended. Bowel sounds are positive. MUSCULOSKELETAL: No cyanosis or clubbing. No pitting in the bilateral lower extremities. NEUROLOGIC: Grossly nonfocal. LABORATORY DATA: Creatinine 1.84. Basic metabolic profile is otherwise unremarkable/stable. His bicarb has jumped up to 34. Microbiology on the pleural fluid is negative to date. Cytology is negative on the pleural fluid. ASSESSMENT: 1. Acute hypoxic respiratory failure, resolving. 2. Healthcare-associated pneumonia. 3. Pleural effusion on the right, likely pseudoexudate. 4. Cirrhosis with mild decompensation. 5. Chronic kidney disease, stage 3. 6. [id number] systolic and diastolic heart failure. DISCUSSION AND PLAN: I will convert the patient over to p.o. antibiotics. He will need to complete a 7-day course. No additional thoracentesis needed to be directed at this fluid collection unless we suspect there is an infection there, or the patient is severely symptomatic from it. At this point, the patient has no further requirements for inpatient Pulmonary or Critical Care opinion and I will sign off. Please call with additional questions or concerns through time. Job ID: [id number] [facility]
[2019-01-28 09:29] VITALS: BP 106/64; TEMP 97.9
[2019-01-28] MEDS: Colchicine 0.6 MG TAB PO SCH (09:31)
[2019-01-28] MEDS: FLUoxetine HCl 20 MG CAP PO SCH (09:31)
[2019-01-28] MEDS: guaiFENesin ER 600 MG TAB PO SCH (09:34)
[2019-01-28] MEDS: Loratadine 10 MG TAB PO SCH (09:34)
[2019-01-28] MEDS: Apixaban 5 MG TAB PO SCH (09:34)
[2019-01-28] MEDS: Metoprolol Tartrate 50 MG TAB PO SCH (09:34)
[2019-01-28] MEDS: Spironolactone 100 MG TAB PO SCH (09:34)
[2019-01-28] MEDS: glipiZIDE 10 MG TAB PO SCH (09:35)
[2019-01-28] MEDS: Allopurinol 100 MG TAB PO SCH (09:35)
[2019-01-28] MEDS: Gabapentin 100 MG CAP PO SCH (09:35)
--- NOTE | 2019-01-28 11:40 | PRG ---
DATE OF SERVICE: 01/28/2019 SUBJECTIVE: Patient was seen and examined at bedside and overnight events noted. Patient denies any shortness of breath or chest pain or palpitation. No history of nausea or vomiting or diarrhea or fever or chills or cramps. OBJECTIVE: GENERAL: This is a well-built male in no apparent distress. VITAL SIGNS: Temperature 97.9. Heart rate 99. Respiratory rate 18. Blood pressure 106/64. HEENT: Atraumatic, normocephalic. Oral mucosa is moist NECK: Supple. CARDIOVASCULAR: S1, S2 heard. Rate and rhythm regular. RESPIRATORY: Clear to auscultation. GASTROINTESTINAL: Abdomen is soft. MUSCULOSKELETAL: No tenderness. No edema. DERMATOLOGIC: No skin rash. NEUROLOGIC: Alert and awake and oriented X3. No focal neurologic deficits. Moving all the extremities. PSYCHIATRIC: Mood and affect normal. LABORATORY DATA: Potassium is 3.7, BUN is 45, creatinine is 1.5. ASSESSMENT AND PLAN: 1. Acute kidney injury on chronic kidney disease stage 3, stable. 2. Cardiorenal syndrome. 3. Hypertension. 4. Anemia. We will sign off. Please follow up with Les in 1 to 2 weeks. Job ID: [id number]
--- NOTE | 2019-01-28 12:28 | DIS ---
DATE OF ADMISSION: 01/22/2019 DATE OF DISCHARGE: 01/28/2019 PRIMARY CARE PROVIDER: Mana Irizarry. DISPOSITION: Discharged home. DIAGNOSES: 1. Acute on chronic congestive heart failure, systolic. 2. Cirrhosis of the liver secondary to steatohepatitis. 3. Coronary artery disease. 4. Diabetes mellitus type 2 with chronic kidney disease type 3. 5. Cardiomyopathy. 6. Right middle lobe pneumonia. 7. Parapneumonic effusion. 8. Atrial fibrillation, anticoagulation. DISCHARGE MEDICATIONS: 1. Levothyroxine 200 mcg a day. 2. Gabapentin 100 mg twice a day. 3. Glipizide 10 mg twice a day. 4. Spironolactone 100 mg a day. 5. Fluoxetine 40 mg a day. 6. Colchicine 0.5 mg twice a day. 7. Eliquis 5 mg b.i.d. 8. Allopurinol 100 mg p.o. b.i.d. 9. Metoprolol 75 mg p.o. b.i.d. 10. Levaquin 500 mg a day for five more days. 11. Lasix 40 mg b.i.d. ALLERGY: To codeine and penicillins. DIET: Diabetic. CODE STATUS: Full. PENDING AT TIME OF DISCHARGE: Nothing. HOSPITAL COURSE: The patient admitted to the [facility] through [facility] with shortness of breath. The patient with multiple medical problems, had regular rate and rhythm. The patient had elevated BNP at 2038. Initial chest x-ray; cardiomegaly, large right pleural effusion, pulmonary vascular congestion. An echocardiogram was done, showed EF of 35% to 40%. The patient was placed on IV Lasix during his hospital stay. He diurese from 303 pounds to 265 pounds. His initial laboratory; white count 18.1, hemoglobin 12.8, platelet count 444,000. Creatinine 2.11, BUN 52, sodium 132, potassium 4.6, blood sugars were in the 400 range. Cardiac enzymes were normal. The patient was seen in consultation by Dr. Morro Gill, Dr. Jeb Saldana. Dr. Gill recommended diuresis. He was diuresed with 80 mg of Lasix IV in the morning, 40 in the afternoon. The patient was treated with IV antibiotics for pneumonia. His cultures of sputum detected Gram negative rods. Respiratory panel was negative. No acid-fast bacilli were seen. The patient underwent diagnostic therapeutic thoracentesis of the right chest on 01/26/[address] Landin, who saw the patient in consultation first on 01/24/2019. The pleural fluid LDH 122, protein 4.2, glucose 175, 594 white cells, 199 red cells. Culture is no growth. The patient improved progressively with diuresis. As I mentioned, he lost a large number of pounds of fluid. He no longer has ankle edema. His chest is clear. His vital signs are stable. He has been transitioned to p.o. antibiotics, p.o. Lasix. His most recent chemistries reveal sodium 132, potassium 4.6, BUN 42, creatinine 2.11. He is being discharged on the aforementioned medications. Followup Mana Irizarry. At followup, he will need to check electrolytes, blood sugar, hemoglobin A1c. The patient is not a candidate for metformin and may need other oral hypoglycemic agents added to his regimen. 40 minutes spent preparing this discharge. Job ID: [id number]
[2019-01-28] MEDS ORDERED: Furosemide 40 MG TAB PO SCH (14:00)
== END 2019-01-28 13:45 | disposition home or self-care (01) | DRG 291 ==
LOC: ERS 03:46 → OBSVTOIN 05:32 → ERHOLD 05:32 → 2SW 12:12 → 2NO 01-23 14:21
PROVIDERS: ADMIT Hospitalist; ATTEND Hospitalist
PROC: 0B9N30Z Drainage of Right Pleura with Drainage Device, Percutaneous Approach (ICD-10-PCS; principal; 2019-01-26)
DX: I13.0 Hypertensive heart and chronic kidney disease with heart failure and stage 1 through stage 4 chronic kidney disease, or unspecified chronic kidney disease (principal); I50.23 Acute on chronic systolic (congestive) heart failure; J96.01 Acute respiratory failure with hypoxia; J18.1 Lobar pneumonia, unspecified organism; J90 Pleural effusion, not elsewhere classified; N17.9 Acute kidney failure, unspecified; K75.81 Nonalcoholic steatohepatitis (NASH); E11.42 Type 2 diabetes mellitus with diabetic polyneuropathy; E78.5 Hyperlipidemia, unspecified; K21.9 Gastro-esophageal reflux disease without esophagitis; I25.10 Atherosclerotic heart disease of native coronary artery without angina pectoris; E11.22 Type 2 diabetes mellitus with diabetic chronic kidney disease; E03.9 Hypothyroidism, unspecified; D64.9 Anemia, unspecified; N18.3 Chronic kidney disease, stage 3 (moderate); I48.2 Chronic atrial fibrillation; I44.7 Left bundle-branch block, unspecified; M10.9 Gout, unspecified; I25.5 Ischemic cardiomyopathy; K74.69 Other cirrhosis of liver; F17.220 Nicotine dependence, chewing tobacco, uncomplicated; E66.9 Obesity, unspecified; Z68.30 Body mass index [BMI] 30.0-30.9, adult; L29.9 Pruritus, unspecified; B35.1 Tinea unguium; Z95.5 Presence of coronary angioplasty implant and graft; Z83.3 Family history of diabetes mellitus; Z79.01 Long term (current) use of anticoagulants; Z79.899 Other long term (current) drug therapy; Z88.0 Allergy status to penicillin; Z88.8 Allergy status to other drugs, medicaments and biological substances; Z79.84 Long term (current) use of oral hypoglycemic drugs
CPT/HCPCS: 36415; 36416; 71046; 71250; 80048; 80053; 82945; 83615; 83986; 84157; 85025; 85060; 87070; 87116; 87205; 87206; 87324; 87449; 87633; 87798; 88112; 88305; 89051; 93306; 93798; 93970; 99285; J0692; J1940; J1956; J2248; J3370; J7050; Q0162; Q0163

== ENCOUNTER 2019-03-24 10:48 | Inpatient (IN) | payer SELFPAY ==
[2019-03-24 11:36] LABS: #Basophils 0.1 thou/uL (0.0-0.2); #Eosinphils 0.3 thou/uL (0.0-0.7); #Lymphocytes 1.9 thou/uL (1.20-3.40); #Monocytes 1.1 thou/uL (0.11-0.59); #Neutrophils 8.5 thou/uL (1.40-6.50); %Basophils 0.8 % (0.0-1.0); %Eosinophils 2.5 % (0.0-10.0); %Lymphocytes 16.3 % (21.0-51.0); %Monocytes 8.8 % (0.0-10.0); %Neutrophils 71.6 % (42.0-75.0); Hemoglobin 13.5 g/dL (14.0-18.0); Mean Corpuscular HGB CONC 29.6 g/dL (32.0-36.0); Mean Corpuscular Hemoglobin 24.1 pg (27.0-31.0); Mean Corpuscular Volume 81.5 fL (78.0-98.0); Mean Platelet Volume 10.4 fL (7.4-10.4); Platelet Count 311 thou/uL (130-400); RBC Distribution Width 26.4 % (11.5-14.5); Red Blood Cell (RBC) Count 5.59 mill/uL (4.70-6.10); White Blood Cell (WBC) Count 11.9 thou/uL (4.8-10.8)
--- NOTE | 2019-03-24 11:46 | RAD ---
Exam: Chest one view: HISTORY: Chest pain COMPARISON: 01/24/2019 FINDINGS: Monitor leads overlie the chest. Persistent pleural and parenchymal opacity changes in the right base with minimal cardiomegaly and probable very mild bilateral vascular congestion. Appearance is improved from prior study. IMPRESSION: Decreased pleural and parenchymal changes in the right base. Otherwise stable.
[2019-03-24 12:01] LABS: Anisocytosis MODERATE=16-30 cells (100X) (0-5/hpf); Band 10 % (5-11); Eosinophils 2 % (0-10); Lymphocytes 21 % (21-51); MDiff Complete? YES; Monocytes 3 % (0-10); Myelocyte 1 % (0-0); Neutrophil 61 % (42-75); Platelet Morphology Comment Appears Adequate; Polychromasia SLIGHT = 2-3 cells (100X) (0-2/hpf)
[2019-03-24 12:02] LABS: ALT (SGPT) 20 U/L (8-55); AST (SGOT) 29 U/L (5-34); Albumin 3.8 g/dL (3.5-5.0); Alkaline Phosphatase 131 U/L (40-150); Anion Gap 17 mmol/L (10-20); BUN (Urea Nitrogen) 28 mg/dL (8.4-25.7); Bilirubin, Total 0.5 mg/dL (0.2-1.2); CK (CPK) 156 U/L (30-200); Calc. Creatinine Clearance 0 mL/min (70-130); Carbon Dioxide 23 mmol/L (22-29); Chloride 100 mmol/L (98-107); Estimated GFR-MDRD 42; Globulin 3.9 g/dL (2.4-3.5); Glucose 281 mg/dL (70-105); Lipase 42 U/L (8-78); Potassium 4.5 mmol/L (3.5-5.1); Protein, Total 7.7 g/dL (6.0-8.3); Sodium 135 mmol/L (136-145)
[2019-03-24] MEDS ORDERED: Furosemide 40 MG/4 ML VIAL ONE (14:02)
[2019-03-24] MEDS ORDERED: Aspirin 325 MG TAB ONE (14:02)
[2019-03-24] MEDS ORDERED: Nitroglycerin 2% Ointment 1 INCH/1 GM Packet ONE (14:02)
[2019-03-24] MEDS ORDERED: Sodium Chloride 0.65% Nasal 44 ML BOT EA NARE PRN (15:03)
[2019-03-24] MEDS ORDERED: Bisacodyl 10 MG SUPP PR PRN (15:03)
[2019-03-24] MEDS ORDERED: Senokot S 8.6-50 MG TAB PO PRN (15:03)
[2019-03-24] MEDS ORDERED: Loratadine 10 MG TAB PO PRN (15:03)
[2019-03-24] MEDS ORDERED: Ondansetron PF 4 MG/2 ML Vial IVP PRN ×2 (15:03)
[2019-03-24] MEDS ORDERED: Benzonatate 100 MG CAP PO PRN (15:03)
[2019-03-24] MEDS ORDERED: Nitroglycerin 0.4 MG TAB (25 Tab Bottle) SL PRN (15:03)
[2019-03-24] MEDS ORDERED: Diabetic Tussin 200 MG/10 ML UDCUP PO PRN (15:03)
[2019-03-24] MEDS ORDERED: Acetaminophen 325 MG TAB PO PRN (15:03)
[2019-03-24] MEDS ORDERED: Bisacodyl 5 MG TAB PO PRN (15:03)
[2019-03-24] MEDS ORDERED: Metolazone 5 MG TAB PO SCH (16:00)
--- NOTE | 2019-03-24 16:08 | CT ---
Exam: Chest, abdomen, and pelvic CT scan without IV contrast: HISTORY: Abdominal pain, history of cirrhosis, congestive heart failure, and shortness of breath. COMPARISON: Chest CT scan, 01/25/2019 FINDINGS: Evidence for cardiomegaly and bilateral vascular congestion and interstitial edema with moderate righ t pleural effusion and very minimal compressive atelectatic changes in the right lower lobe pleural-based, overall improved from prior study. Stable minimally enlarged mediastinal lymph nodes. No pericardial effusion. No left pleural effusion. Stable old granulomatous disease. The liver is within normal limits of size. No ductal dilatation. The gallbladder, pancreas, spleen, a drenal glands are unremarkable. Bilateral renal cysts. No renal calculus or acute obstruction. No CT evidence for acute appendicitis. Minimal free fluid in the pelvis. Fatty right spermatic cord. Evidence for minimal anasarca with some skin thickening of the anterior abdomen. IMPRESSION: Right pleural effusion and minimal compressive atelectasis improving from prior study. Cardiomegaly w ith bilateral vascular congestion and interstitial and alveolar edema evidence for congestive heart failure. Very minimal free fluid in the pelvis.
[2019-03-24] MEDS ORDERED: Dextrose 50% Abboject 50 ML SYRINGE SLOW IVP PRN (16:29)
[2019-03-24] MEDS ORDERED: Dextrose 5% in Water 1,000 ML IV PRN (16:29)
--- NOTE | 2019-03-24 17:29 | HP ---
PRIMARY CARE PHYSICIAN: Mana Irizarry. CHIEF COMPLAINT: Worsening shortness of breath, abdominal distention and pain, nausea, poor oral intake, weight gain, leg swelling, and generalized malaise and weakness. HISTORY OF PRESENTING ILLNESS: Mr. Harry is a 58-year-old male with known history of congestive heart failure, nonalcoholic steatohepatitis, resulting in cirrhosis as well as chronic kidney disease, hypertension, dyslipidemia, coronary artery disease and chronic AFib, who presented to the emergency room with the above-mentioned complaint. History is mainly obtained by the patient himself and supplemented by his present at the bedside and case has been discussed with the emergency room physician, Dr. Barrera. According to Dr. Barrera, the patient has not been able to take his spironolactone for the last 2 weeks. He was last admitted to our facility in December of this year, at which time, he was admitted and treated for acute CHF exacerbation. During that hospitalization in December, he had to undergo a thoracentesis by Dr. Landin for right-sided pleural effusion. He was also treated with healthcare-associated pneumonia at that time. An echocardiogram done in September 2019 showed EF of 35% to 40% with an anterior wall akinesis and possibly diastolic dysfunction. He was discharged on 01/28/2019 after extensive diuresis and reduction of his weight by almost 30 pounds. Today, he came back to the ER with above-mentioned complaints. He has been feeling severely fatigued, feels bloated, has been having shortness of breath, cannot walk around, feels that his abdomen is distended and tight and has been having nausea and abdominal pain. He is also severely constipated. No trouble with urination. They do not have any insurance and have not been able to follow up with Cardiology or Heart Failure Clinic. According to the ER physician, he is noncompliant with his medications largely because of the financial reasons. Upon presentation to the emergency room, 92% on room air with respirations of 18 and blood pressure 142/97. His chest x-ray showed improvement in the right-sided pleural effusion and vascular congestion, and his BNP was 1318, which is actually better than what it was on 01/22/2019 at 2000. He was given 40 mg of Lasix and 1 inch of transdermal nitroglycerin and is now being admitted to the hospital for acute CHF exacerbation. PAST MEDICAL HISTORY: 1. History of chronic congestive heart failure, suspected combined systolic and diastolic. 2. Nonalcoholic cirrhosis. 3. Chronic kidney disease, stage 3. 4. Diabetes mellitus with diabetic peripheral neuropathy. 5. Gastroesophageal reflux disease. 6. Hypertension. 7. Dyslipidemia. 8. Coronary artery disease, status post stenting 5 years ago in [place], [place]. 9. Chronic atrial fibrillation, on chronic anticoagulation. 10. Hypothyroidism. 11. Gout. PAST SURGICAL HISTORY: Cardiac stenting. FAMILY HISTORY: Mother of diabetic complications. Sister of diabetic complications. Father of a cerebral aneurysm. SOCIAL HISTORY: He is a nonsmoker. No history of drug or alcohol abuse. . CODE STATUS: Full code and his is a surrogate decision maker. ALLERGIES: CODEINE AND PENICILLIN. HOME MEDICATIONS: 1. Glipizide 10 mg b.i.d. 2. Colchicine 0.5 mg b.i.d. 3. Levothyroxine 200 mcg daily. 4. Gabapentin 100 mg b.i.d. 5. Allopurinol 300 mg b.i.d. 6. Metoprolol tartrate 50 mg b.i.d. 7. Lasix 40 mg daily. 8. Aldactone 100 mg daily. 9. Fluoxetine 40 mg daily. 10. Eliquis 5 mg p.o. b.i.d. REVIEW OF SYSTEMS: A 14-point review of system is done. It is negative except for those mentioned in the history and physical. LABORATORY DATA: CBC shows WBCs of 11.9 without any left shift, hemoglobin 13.5, and platelet count of 311. Serum chemistry; sodium 135, BUN 28, creatinine 1.69, and glucose 281. Troponin is 0.011. BNP of 1318. Liver enzymes normal. Lipase normal. Chest x-ray by my review shows improvement in his right-sided pleural effusion with minimal pulmonary vascular congestion. A 12-lead EKG by my review shows atrial fibrillation with controlled ventricular response at 85 beats per minute. Normal ST segments and T-waves. PHYSICAL EXAMINATION: VITAL SIGNS: Upon presentation, blood pressure 142/97, pulse 82, respirations 18, saturating, 92% on room air, and temperature 97.4. GENERAL: He appears uncomfortable. He is sitting on the edge of the bed. He is awake, alert, and oriented x3. HEENT: Mucous membrane is moist and pink. No oropharyngeal exudate or erythema. Head is normocephalic and atraumatic. Pupils are equal and reactive to light and accommodation. Extraocular movement intact. NECK: Supple without any lymphadenopathy, JVD or bruit. CHEST: Evaluation do not reveal any wheezing, but he has decreased breath sounds bilaterally. No specific crackles are heard. ABDOMEN: Morbidly obese, soft, nontender. I do not appreciate any fluid wave. It is distended. EXTREMITIES: +1 pitting edema bilaterally. NEUROLOGICAL: Nonfocal. SKIN: Free of any rashes or bruises. Feels warm and dry to touch. PSYCHIATRIC: Normal affect. IMPRESSION AND PLAN: 1. Acute on chronic congestive heart failure, likely systolic and diastolic in nature based on the echocardiogram done 2 months ago. However, at this time, his symptoms are not really suggestive of just the congestive heart failure exacerbation. He is in general feeling very ill and reports that he has not been feeling well for the last 6 months. His BNP is not that elevated and his chest x-ray actually shows improvement in comparison to his last one done in the hospital. We will restart his Aldactone, diurese him with IV Lasix, and give him a dose of Zaroxolyn. I have reviewed the consultation note from Cardiology from last hospitalization. Dr. Gill has mentioned that he most likely will need a Bi-V pacing device if his symptoms re-occurrent. He also was found to have left bundle-branch block and he also has left ventricular dysfunction on top of atrial fibrillation. It seems like until his underlying issues are controlled, his CHF cannot be controlled very well. We will put him on a fluid restricted diet and monitor Is and Os strictly with daily weights. Aggressive diuresis with monitoring of renal function for now. We will request cardiac rehab as well as heart failure clinic consultation. 2. Abdominal distention and nausea. The patient most likely has gut wall edema as well. IV diuresis will be instituted for this reason. We will obtain a CT scan of the chest, abdomen, and pelvis to rule out massive ascites or worsening recurrent pleural effusion. At this time, the chest x-ray suggests actually improvement in his right-sided pleural effusion. However, on my examination, I was not able to auscultate good breath sounds bilaterally. If his pleural effusion has come back, we will request consultation with Pulmonary Medicine once again. 3. Chronic atrial fibrillation, on anticoagulation. We will restart his Eliquis. He reports compliance with it in the outpatient setting. His INR is also elevated, likely due to Eliquis as well. With his cirrhosis, monitor his platelet and monitor for any bleeding. He is a poor candidate for anticoagulation, but also is at a very high risk of stroke without it, continue for now. 4. Presumed cirrhosis, likely from nonalcoholic steatohepatitis. It does not seem that he has any significant decompensation for now. We will restart his Aldactone. Continue diuresis and add lactulose for constipation as well as for prevention of hepatic encephalopathy. Currently, he is awake, alert and oriented x3. 5. Hypertension. Resume home medications including metoprolol, Lasix, and spironolactone. 6. Diabetes mellitus. We will restart his Glucotrol and add insulin sliding scale with frequent Accu-Cheks. 7. Morbid obesity. 8. Diabetic neuropathy. Restart gabapentin 100 b.i.d. 9. Hypothyroidism. Restart levothyroxine 200 mcg daily. 10. Deep venous thrombosis and gastrointestinal prophylaxis. The patient is on Eliquis. We will add Pepcid b.i.d. DISPOSITION: Mr. Harry is currently being admitted again for re-occurrent symptoms suggestive of acute CHF. Estimated length of stay at this time is at least 2 to 3 midnights. Further management will depend upon his clinical course. Job ID: [id number]
[2019-03-24 18:12] LABS: Troponin I Less than 0.010 ng/mL (< 0.028)
[2019-03-24 19:52] VITALS: BMI 35.0
[2019-03-24] MEDS ORDERED: Allopurinol 300 MG TAB PO SCH (21:00)
[2019-03-24] MEDS ORDERED: Gabapentin 100 MG CAP PO SCH (21:00)
[2019-03-24] MEDS: Allopurinol 100 MG TAB PO SCH (21:19)
[2019-03-24] MEDS: Famotidine 20 MG TAB PO SCH (21:19)
[2019-03-24] MEDS: Metoprolol Tartrate 50 MG TAB PO SCH (21:19)
[2019-03-24] MEDS: Apixaban 5 MG TAB PO SCH (21:19)
[2019-03-24] MEDS: glipiZIDE 10 MG TAB PO SCH (21:19)
[2019-03-24] MEDS: Gabapentin 300 MG CAP PO SCH (21:20)
[2019-03-24] MEDS: HumaLOG 300 UNITS/3 ML VIAL SC PRN (21:38)
[2019-03-24] MEDS: Melatonin 3 MG TAB PO PRN (23:54)
[2019-03-25 05:34] LABS: Anion Gap 16 mmol/L (10-20); BUN (Urea Nitrogen) 32 mg/dL (8.4-25.7); Calc. Creatinine Clearance 88 mL/min (70-130); Carbon Dioxide 24 mmol/L (22-29); Chloride 101 mmol/L (98-107); Estimated GFR-MDRD 40; Glucose 183 mg/dL (70-105); Magnesium 2.2 mg/dL (1.6-2.6); Sodium 137 mmol/L (136-145)
[2019-03-25 05:57] LABS: #Basophils 0.1 thou/uL (0.0-0.2); #Eosinphils 0.4 thou/uL (0.0-0.7); #Lymphocytes 2.3 thou/uL (1.20-3.40); #Monocytes 1.4 thou/uL (0.11-0.59); #Neutrophils 8.8 thou/uL (1.40-6.50); %Basophils 0.9 % (0.0-1.0); %Eosinophils 3.3 % (0.0-10.0); %Lymphocytes 17.4 % (21.0-51.0); %Monocytes 10.5 % (0.0-10.0); Anisocytosis MODERATE=16-30 cells (100X) (0-5/hpf); MDiff Complete? YES; Mean Corpuscular HGB CONC 31.6 g/dL (32.0-36.0); Mean Corpuscular Hemoglobin 26.5 pg (27.0-31.0); Mean Corpuscular Volume 83.9 fL (78.0-98.0); Platelet Count 304 thou/uL (130-400); Polychromasia SLIGHT = 2-3 cells (100X) (0-2/hpf); RBC Distribution Width 26.5 % (11.5-14.5)
[2019-03-25] MEDS: Levothyroxine Sodium 100 MCG TAB PO SCH (06:14)
[2019-03-25] MEDS: Furosemide 40 MG/4 ML VIAL SLOW IVP SCH ×2 (06:15→14:17)
[2019-03-25] MEDS: HumaLOG 300 UNITS/3 ML VIAL SC PRN ×4 (06:20→21:47)
[2019-03-25] MEDS: Gabapentin 300 MG CAP PO SCH ×2 (09:16→21:46)
[2019-03-25] MEDS: glipiZIDE 10 MG TAB PO SCH ×2 (09:17→21:45)
[2019-03-25] MEDS: Allopurinol 100 MG TAB PO SCH ×2 (09:17→21:46)
[2019-03-25] MEDS: Famotidine 20 MG TAB PO SCH ×2 (09:17→21:46)
[2019-03-25] MEDS: Apixaban 5 MG TAB PO SCH ×2 (09:17→21:46)
[2019-03-25] MEDS: Spironolactone 100 MG TAB PO SCH (09:18)
[2019-03-25] MEDS: FLUoxetine HCl 20 MG CAP PO SCH (09:18)
[2019-03-25] MEDS: Metoprolol Tartrate 50 MG TAB PO SCH ×2 (09:28→21:46)
--- NOTE | 2019-03-25 16:10 | PRG ---
DATE OF SERVICE: 03/25/2019 SUBJECTIVE: The patient is seen and examined at the bedside. He is still short of breath. He has pain in his abdomen on and off daily. OBJECTIVE: VITAL SIGNS: Blood pressure is 134/99, pulse is 67, temperature 97.6, respirations 18, O2 saturation is 93% on nasal cannula 2 L. GENERAL: He is obese. HEENT: His head is atraumatic and normocephalic. Eyes, PERRLA. Sclerae are nonicteric. Oral mucosa is moist. NECK: Supple, obese. LUNGS: Breath sounds diminished at both bases with dullness in 1/3 down to his right lung. HEART: S1, S2, irregularly irregular. No S3. No S4. ABDOMEN: Obese. Diffusely tender to deeper palpation. EXTREMITIES: No peripheral edema. NEUROLOGICAL: He follows my commands. He moves his all four extremities. There is no any motor deficits. LABORATORY DATA: Labs showed white count of 13.0, hemoglobin 13.0, hematocrit 41.1, platelet count is 304. Chemistry, normal electrolytes, BUN of 32, creatinine 1.75. Glycemia is ranging from 190 to 276. Three sets of troponins within normal limits. Magnesium 2.2. BNP 1179. IMPRESSION: 1. Acute on chronic congestive heart failure. 2. Some abdominal pain with some nausea. 3. Chronic atrial fibrillation, on anticoagulation with Eliquis. 4. Nonalcoholic steatohepatitis and liver cirrhosis. 5. Hypertension. 6. Diabetes mellitus. 7. Morbid obesity. 8. Diabetic neuropathy. 9. Hypothyroidism. 10. Chronic renal failure, stage 3. 11. Coronary artery disease, status post stenting. PLAN: Diuresis. Apparently, he was feeling much better after he was diuresed almost 50 pounds last time he was here in this hospital. I recommended him to go and apply for disability. He has multiple medical problems. He should not be working at this point. He reaccumulated some fluid in his right lung that is again very likely congestive heart failure related, and we will continue his Accu-Cheks a.c. and at bedtime, and his furosemide twice a day. We will continue spironolactone 100 mg daily and daily labs to make sure his kidney function is not getting worse, and we will start him on 10 units of insulin Lantus once a day. Job ID: [id number]
[2019-03-25] MEDS ORDERED: Insulin Glargine 10 UNITS in Pre-Filled Syringe 1 EACH SC SCH (21:00)
--- NOTE | 2019-03-25 21:24 | CON ---
DATE OF CONSULTATION: HISTORY: Ho Harry is a 58-year-old white male. He was just admitted from January 22 through January 28, 2019. He has been readmitted with increased shortness of breath. He was initially evaluated by Dr. Rod in 2007 and underwent cardiac catheterization. He had normal left ventricular function with ejection fraction of 50% to 55%. There was 40% to 50% distal LAD stenosis, but no other significant disease. Mr. Harry also states that 3 years ago in [place], [place] that he underwent coronary stent placement and that he has "not felt right since." He has chronic atrial fibrillation, which he thinks started after the stent was placed. He also has been hospitalized in [place] and found to have nonalcoholic steatohepatitis. He was hospitalized here for January 08 through January 11 as well as January 22 through January 28. During both hospitalizations, he was diuresed. He also apparently had pneumonia during his last admission. Since being home, Mr. Harry states that his breathing has gradually worsened. Apparently, he has not been taking Aldactone. Also, when he was discharged, on his medicine list was Furosemide 40 b.i.d., however, his admission note states he is only taking 40 daily and he also thinks he only takes one per day. He has had increased shortness of breath, abdominal distention, leg edema. He also complains of sharp stabbing type chest pain in the left lower portion of this chest in very small area. He denies any pleuritic component to that pain. Whenever he have it, will be continually present for 4 or 5 hours. He has been given intravenous Lasix and states his breathing has improved. 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 OPERATIONS: Coronary artery stent placement approximately 3 years ago in [place]. MEDICATIONS: 1. Glipizide 10 b.i.d. 2. Colchicine 5 mg b.i.d. 3. Levothyroxine 200 mcg daily. 4. Gabapentin 100 b.i.d. 5. Allopurinol 300 b.i.d. 6. Metoprolol 50 b.i.d. 7. Furosemide 40 daily (was b.i.d. on discharge, January 28, 2019). 8. Aldactone 100 daily. (currently not taking). 9. Fluoxetine 40 mg daily. 10. Eliquis 5 b.i.d. ALLERGIES: CODEINE AND PENICILLIN. SOCIAL HISTORY: He does not smoke, although he uses snuff. He does not drink. 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 FAMILY HISTORY: Negative for coronary artery disease. REVIEW OF SYSTEMS: A 12-point review of systems is otherwise unremarkable. PHYSICAL EXAMINATION: VITAL SIGNS: Blood pressure 127/89, pulse of 67, atrial fibrillation on the monitor. HEENT: PERRL. CHEST: Reveals decreased breath sounds at the right base. CARDIOVASCULAR: S1 and S2 normal without any S3, S4, or murmurs. ABDOMEN: Normal bowel sounds without tenderness or organomegaly. No significant fluid wave. EXTREMITIES: Reveal 1+ pretibial edema. NEUROLOGIC: Grossly intact. SKIN: Warm and dry. LABORATORY DATA: EKG reveals atrial fibrillation with left bundle-branch block. CT of the abdomen, chest, and pelvis revealed right pleural effusion, bilateral vascular congestion, minimal free fluid in the pelvis. Chest x-ray revealed decreased pleural and parenchymal changes of the right base compared to previous chest x-ray. Hemoglobin 13.0, hematocrit 41.1, white count 13,000, platelets 304,000. Sodium 137, potassium 4.0, chloride 101, carbon dioxide 24, BUN 32, creatinine 1.75. BNP 1179.0. Cardiac enzymes are unremarkable. IMPRESSION: 1. Acute on chronic systolic heart failure, noncompliance with Lasix 40 b.i.d. and also apparently the spironolactone 100 daily. 2. Ejection fraction of 35% to 40%. 3. Left bundle branch block. 4. History of coronary artery disease, status post stent placement. 5. Nonalcoholic steatohepatitis with probable cirrhosis. 6. Chronic kidney disease. 7. Diabetes. 8. History of hyperlipidemia. 9. Chronic atrial fibrillation, anticoagulated with Eliquis. 10. Hypertension. 11. History of gout. 12. Snuff user. PLAN: Mr. Harry will be diuresed. Certainly he presents a very difficult problem going forward with noncompliance at times with his diuretics. We will continue to follow the patient with you. Job ID: [id number] MTDD
[2019-03-26 05:29] LABS: Troponin I Less than 0.010 ng/mL (< 0.028)
[2019-03-26] MEDS: Levothyroxine Sodium 100 MCG TAB PO SCH (06:06)
[2019-03-26] MEDS: Furosemide 40 MG/4 ML VIAL SLOW IVP SCH ×2 (06:07→15:41)
[2019-03-26] MEDS: Spironolactone 100 MG TAB PO SCH (08:59)
[2019-03-26] MEDS: Allopurinol 100 MG TAB PO SCH ×2 (09:00→21:32)
[2019-03-26] MEDS: Apixaban 5 MG TAB PO SCH ×2 (09:00→21:32)
[2019-03-26] MEDS: Gabapentin 300 MG CAP PO SCH ×2 (09:01→21:32)
[2019-03-26] MEDS: glipiZIDE 10 MG TAB PO SCH ×2 (09:01→21:31)
[2019-03-26] MEDS: Famotidine 20 MG TAB PO SCH ×2 (09:01→21:31)
[2019-03-26] MEDS: Metoprolol Tartrate 50 MG TAB PO SCH ×2 (09:02→21:32)
[2019-03-26] MEDS: FLUoxetine HCl 20 MG CAP PO SCH (09:05)
[2019-03-26 11:21] LABS: Anion Gap 14 mmol/L (10-20); BUN (Urea Nitrogen) 33 mg/dL (8.4-25.7); Calc. Creatinine Clearance 85 mL/min (70-130); Calcium 8.9 mg/dL (7.8-10.44); Carbon Dioxide 27 mmol/L (22-29); Chloride 97 mmol/L (98-107); Estimated GFR-MDRD 40; Glucose 289 mg/dL (70-105); Potassium 4.3 mmol/L (3.5-5.1)
[2019-03-26 11:24] LABS: Sodium 134 mmol/L (136-145)
[2019-03-26] MEDS: HumaLOG 300 UNITS/3 ML VIAL SC PRN ×2 (12:05→17:37)
--- NOTE | 2019-03-26 12:49 | PRG ---
DATE OF SERVICE: 03/26/2019 SUBJECTIVE: The patient is seen and examined at the bedside. He is feeling better this morning. His appetite is good. He is hungry. His abdominal pain has significantly decreased. OBJECTIVE: VITAL SIGNS: Blood pressure is 154/91, pulse is 77, temperature is 97.8, respiratory rate is 20, and O2 saturation is 98% on 2 L by nasal cannula. HEENT: His head is atraumatic and normocephalic. Eyes are PERRLA. Sclerae are nonicteric. Oral mucosa is moist. NECK: Supple. JVD is plus bilaterally. LUNGS: Breath sounds diminished at both bases with bilateral crackles at both bases. No wheezing. HEART: S1 and S2, somewhat irregularly irregular. No S3. No S4. There is a systolic murmur at the right sternal border, 2/6. ABDOMEN: Soft, obese, somewhat distended with some tenderness in upper parts of the abdomen. Bowel sounds are present, very active. EXTREMITIES: 1+ peripheral edema similar bilaterally on lower extremities. NEUROLOGICAL: He is alert and oriented x4. There are no any motor deficits. He follows my commands. He moves his all four extremities. LABORATORY DATA: Labs showed sodium of 134, potassium 4.3, chloride 97, CO2 of 27, BUN 33, creatinine 1.75. Glycemia is ranging from 138 to 281. Troponi-I less than 0.010. IMPRESSION: 1. Acute on chronic congestive heart failure. 2. Abdominal pain, most likely related to liver congestion from congestive heart failure. 3. Chronic atrial fibrillation, on anticoagulation with Eliquis. 4. Nonalcoholic steatohepatitis and liver cirrhosis. 5. Hypertension. 6. Diabetes mellitus. 7. Morbid obesity. 8. Diabetic neuropathy. 9. Hypothyroidism. 10. Chronic renal failure, stage 3. 11. Coronary artery disease, status post stenting. PLAN: We are going to do fluid restriction on his oral intake to 1500 mL/24 hours. We will continue his diuresis. I started him on 10 units of insulin Lantus yesterday along with short-acting insulin, but his glycemia is requiring higher doses of insulin, so we will go up to 20 units and this should give him better coverage. Also, we will continue his current regimen with anticoagulant. Job ID: [id number]
[2019-03-26] MEDS: Melatonin 3 MG TAB PO PRN (21:32)
[2019-03-26] MEDS: Insulin Glargine 20 UNITS in Pre-Filled Syringe 1 EACH SC SCH (21:32)
[2019-03-27] MEDS: Levothyroxine Sodium 100 MCG TAB PO SCH (05:22)
[2019-03-27] MEDS: Furosemide 40 MG/4 ML VIAL SLOW IVP SCH (05:22)
[2019-03-27 05:57] LABS: Anion Gap 11 mmol/L (10-20); BUN (Urea Nitrogen) 36 mg/dL (8.4-25.7); Calc. Creatinine Clearance 88 mL/min (70-130); Carbon Dioxide 31 mmol/L (22-29); Chloride 98 mmol/L (98-107); Estimated GFR-MDRD 40; Glucose 140 mg/dL (70-105); Potassium 3.9 mmol/L (3.5-5.1); Sodium 136 mmol/L (136-145)
[2019-03-27] MEDS: Spironolactone 100 MG TAB PO SCH (09:01)
[2019-03-27] MEDS: Apixaban 5 MG TAB PO SCH ×2 (09:01→21:07)
[2019-03-27] MEDS: glipiZIDE 10 MG TAB PO SCH ×2 (09:01→21:07)
[2019-03-27] MEDS: Allopurinol 100 MG TAB PO SCH ×2 (09:01→21:06)
[2019-03-27] MEDS: Metoprolol Tartrate 50 MG TAB PO SCH ×2 (09:01→21:08)
[2019-03-27] MEDS: FLUoxetine HCl 20 MG CAP PO SCH (09:01)
[2019-03-27] MEDS: Famotidine 20 MG TAB PO SCH ×2 (09:01→21:07)
[2019-03-27] MEDS: Gabapentin 300 MG CAP PO SCH ×2 (09:01→21:07)
--- NOTE | 2019-03-27 09:07 | PDOC.CTH ---
Cardiology Progress Note - Subjective The pt seen and examined. No overnight events. No cardiac complaints. He is breathing well without NC - Objective Vital Signs Temp Pulse Resp BP Pulse Ox 03/27/19 07:49 97.3 F L 62 16 124/70 98 03/27/19 04:00 97.3 F L 62 16 117/71 93 L 03/27/19 00:00 97.3 F L 65 16 143/84 H 94 L Weight 304 lb 03/26/19 03/27/19 03/28/19 06:59 06:59 06:59 Intake Total 2180 840 Output Total 2200 2250 680 Balance -41 -7711 -680 - Physical Examination General/Neuro: alert & oriented x3 Neck: no JVD present Lungs: CTA Heart: other: (irregular) Abdomen: soft Extremities: other: (No edema) - Telemetry Telemetry Rhythm: AFib - Labs Result Diagrams: 03/25/19 04:46 03/27/19 05:03 Troponin/CKMB Troponin I Less than 0.010 ng/mL (< 0.028) 03/26/19 04:40 - Assessment/Plan 1. Acute on Chronic Systolic HF with EF 35-40% - stable; On Metoprolol 75mg BID , spironolactone 100mg qd, and Lasix 40mg IV BID, which will be changed to PO BID. Not on LEYDI/ARB due to hx of CKD 2. ABD pain - no ABD pain this AM 3. Chronic Afib - well controlled HR with Metoprolol and Eliquis 5mg BID 4. CAD with hx of CABG - stable; on BBlocker but not on statin due to Liver problem; Not on ASA because he is on Eliquis 5. HTN - stable with current med 6. CKD stage 3 - unchanged 7. DM type 2 - managed by PCP 8. HLD - not on Statin due to Steatohepatitis 9. Hypothyroidism - managed by PCP 10. LBBB - unchanged 11. Non-Alcoholic steatohepatitis with possible Liver cirrhosis - 12. GERD - MAR reviewed Pt. seen and eval. by me. I agree with the A/P by the CERTIFIED MAINTENANCE WELDER. He is slowly diuresing. he continues to chew tobacco which is an anti-diuretic. I suggested that he stop but he says that he has been doing this for 40 yrs and why stop now. Some of his CHF and vol. overload are due to his non-compliance. Continue present management. Chest clear. Irreg,irreg. No edema. Review of Systems - Review of Systems Constitutional: reports: no symptoms reported EENTM: reports: no symptoms reported Respiratory: reports: no symptoms reported Cardiac (ROS): reports: no symptoms reported ABD/GI: reports: no symptoms reported : reports: no symptoms reported
[2019-03-27] MEDS: HumaLOG 300 UNITS/3 ML VIAL SC PRN ×2 (11:37→16:40)
[2019-03-27] MEDS ORDERED: Furosemide 20 MG TAB PO SCH (14:00)
--- NOTE | 2019-03-27 14:10 | PRG ---
DATE OF SERVICE: 03/27/2019 SUBJECTIVE: The patient is seen and examined at the bedside. He is doing gradually better. His abdominal pain has completely gone as we predicted. OBJECTIVE: VITAL SIGNS: Blood pressure is 122/87, pulse is 70, temperature is 98.4, respiratory rate is 16, O2 saturation is 94% on room air. HEENT: His head is atraumatic and normocephalic. Eyes are PERRLA. Sclerae are nonicteric. Oral mucosa is moist. NECK: Supple. LUNGS: Breath sounds are diminished at both bases. HEART: S1 and S2. Irregularly irregular. No S3. No S4. ABDOMEN: Soft, obese, and nontender. EXTREMITIES: 1+ peripheral edema, similar bilaterally on lower extremities. NEUROLOGIC: He is alert and oriented x4. There are no any motor deficits. LABORATORY DATA: Showed sodium of 136, potassium 3.9, chloride 98, CO2 of 31, BUN 36, creatinine 1.76. Glycemia is ranging from 139 to 281. IMPRESSION: 1. [id number] congestive heart failure. Ejection fraction estimated at 35% to 40%. 2. Abdominal pain, resolved. 3. Chronic atrial fibrillation, on anticoagulation with Eliquis. 4. Nonalcoholic steatohepatitis and liver cirrhosis. 5. Hypertension. 6. Diabetes mellitus. 7. Morbid obesity. 8. Diabetic neuropathy. 9. Hypothyroidism. 10. Chronic renal failure, stage 3. 11. Coronary artery disease, status post stenting. PLAN: Plan is to continue his 1500 mL fluid restriction. He is diuresing well. He is switched to p.o. Lasix by Cardiology. His glycemia is doing better on 20 units of insulin Lantus once a day, and plan is to continue the rest of the regimen as before, and we might consider to send him home tomorrow since he improved so quickly. Job ID: [id number]
[2019-03-27] MEDS: Furosemide 40 MG TAB PO SCH (14:11)
[2019-03-27] MEDS: Insulin Glargine 20 UNITS in Pre-Filled Syringe 1 EACH SC SCH (21:08)
[2019-03-28] MEDS: Levothyroxine Sodium 100 MCG TAB PO SCH (06:06)
[2019-03-28 06:10] LABS: Anion Gap 16 mmol/L (10-20); BUN (Urea Nitrogen) 32 mg/dL (8.4-25.7); Calc. Creatinine Clearance 105 mL/min (70-130); Calcium 9.4 mg/dL (7.8-10.44); Carbon Dioxide 26 mmol/L (22-29); Chloride 99 mmol/L (98-107); Estimated GFR-MDRD 49; Glucose 132 mg/dL (70-105); Potassium 4.2 mmol/L (3.5-5.1); Sodium 137 mmol/L (136-145)
[2019-03-28] MEDS: Allopurinol 100 MG TAB PO SCH ×2 (08:12→20:45)
[2019-03-28] MEDS: Famotidine 20 MG TAB PO SCH ×2 (08:12→20:45)
[2019-03-28] MEDS: FLUoxetine HCl 20 MG CAP PO SCH (08:12)
[2019-03-28] MEDS: Furosemide 40 MG TAB PO SCH ×2 (08:12→14:09)
[2019-03-28] MEDS: glipiZIDE 10 MG TAB PO SCH ×2 (08:12→20:46)
[2019-03-28] MEDS: Apixaban 5 MG TAB PO SCH ×2 (08:13→20:45)
[2019-03-28] MEDS: Spironolactone 100 MG TAB PO SCH (08:13)
[2019-03-28] MEDS: Metoprolol Tartrate 50 MG TAB PO SCH ×2 (08:13→20:46)
[2019-03-28] MEDS: Gabapentin 300 MG CAP PO SCH ×2 (08:13→20:46)
--- NOTE | 2019-03-28 14:01 | PDOC.CTH ---
Cardiology Progress Note - Subjective The pt seen and examined. No overnight events. No cardiac complaints. His O2Sat with RA was <88%. He also complains of dizziness with walking. Also complains of ABD bloating. Instructed to cut down soda for sodium intake. - Objective Vital Signs Temp Pulse Resp BP BP Pulse Ox 03/28/19 11:37 97.4 F L 88 20 113/82 94 L 03/28/19 08:10 93 L 03/28/19 08:06 97.6 F 76 20 119/74 93 L 03/28/19 04:00 97.3 F L 71 16 142/72 H 90 L Weight 299 lb 9 oz 03/27/19 03/28/19 03/29/19 06:59 06:59 06:59 Intake Total 840 1080 Output Total 2250 2330 1050 Balance -1410 -1250 -1050 - Physical Examination General/Neuro: alert & oriented x3 Neck: no JVD present Lungs: other: (diminished at bases) Heart: other: (irregular) Abdomen: soft Extremities: other: (No edema) - Telemetry Telemetry Rhythm: Afib - Labs Result Diagrams: 03/25/19 04:46 03/28/19 05:30 Troponin/CKMB Troponin I Less than 0.010 ng/mL (< 0.028) 03/26/19 04:40 - Assessment/Plan 1. Acute on Chronic Systolic HF with EF 35-40% - stable; On Metoprolol 75mg BID , spironolactone 100mg qd, and Lasix 40mg IV BID, which will be changed to PO BID. Not on LEYDI/ARB due to hx of CKD 2. ABD pain - no ABD pain this AM 3. Chronic Afib - well controlled HR with Metoprolol and Eliquis 5mg BID 4. CAD with hx of CABG - stable; on BBlocker but not on statin due to elevated LFT; Not on ASA because he is on Eliquis 5. HTN - stable with current med 6. CKD stage 3 - unchanged 7. DM type 2 - managed by PCP 8. HLD - not on Statin due to Steatohepatitis 9. Hypothyroidism - managed by PCP 10. LBBB - unchanged 11. Non-Alcoholic steatohepatitis with possible Liver cirrhosis - 12. GERD - MAR reviewed Pt. seen and eval. by me.I agree with the A/P by the FELLER BUNCHER OPERATOR. We have discussed the plan. chest clear. Irreg/irreg. gjm Review of Systems - Review of Systems Constitutional: reports: no symptoms reported EENTM: reports: no symptoms reported Respiratory: reports: no symptoms reported Cardiac (ROS): reports: no symptoms reported ABD/GI: reports: abdomen distended
[2019-03-28] MEDS: HumaLOG 300 UNITS/3 ML VIAL SC PRN (14:09)
--- NOTE | 2019-03-28 16:05 | PRG ---
DATE OF SERVICE: 03/28/2019 SUBJECTIVE: The patient is seen and examined at the bedside. He just finished his desat status and he is very exhausted. Apparently, he did not sleep much last. He is trying to nap. OBJECTIVE: VITAL SIGNS: Blood pressure is 113/82, pulse is 88, respirations , O2 saturation is 94% on 4 L by nasal cannula, his temperature is 97.4. HEENT: His head is atraumatic, normocephalic. Sclerae are nonicteric. Conjunctivae are pinkish. Oral mucosa is moist. NECK: Supple. LUNGS: Breath sounds diminished at both bases with bilateral crackles at both bases. HEART: S1, S2. Irregularly irregular. No S3. No S4. ABDOMEN: Obese, soft, nontender. EXTREMITIES: 1+ peripheral edema similar bilaterally. NEUROLOGICAL: He is alert and oriented x4. There is no any sensory or motor deficit present. Cranial nerves are intact. LABORATORY DATA: Labs showed normal electrolytes. BUN of 32, creatinine of 1.46, glycemia is ranging from 177 to 239, calcium is 9.4. IMPRESSION: 1. [id number] congestive heart failure with ejection fraction of the left ventricle estimated at 35% to 40%. 2. Abdominal pain, resolved. 3. Chronic atrial fibrillation, on anticoagulation with Eliquis. 4. Nonalcoholic steatohepatitis and liver cirrhosis. 5. Hypertension. 6. Diabetes mellitus. 7. Morbid obesity. 8. Diabetic neuropathy. 9. Hypothyroidism. 10. Chronic renal failure stage 3. 11. Coronary artery disease, status post stenting. PLAN: Continue his fluid restriction orally to 1500 mL/hr. Continue diuresis. He is putting out more than 2000 mL of urine per 24 hours. It sounds like he needs at least 2 to 3 more days of diuretics. He was just switched to p.o. Lasix by Cardiology service. His diabetes is doing better since we increased the dose on his insulin Lantus to 20 units once a day. Since he failed desat studies, his pulse oximetry went down to 84, we will have to continue his diuresis and re-evaluate his desaturation in the next 2 to 3 days. Job ID: [id number]
[2019-03-28] MEDS: Insulin Glargine 20 UNITS in Pre-Filled Syringe 1 EACH SC SCH (20:46)
[2019-03-29] MEDS: Levothyroxine Sodium 100 MCG TAB PO SCH (05:42)
[2019-03-29 06:00] LABS: Anion Gap 16 mmol/L (10-20); BUN (Urea Nitrogen) 28 mg/dL (8.4-25.7); Calc. Creatinine Clearance 107 mL/min (70-130); Calcium 9.6 mg/dL (7.8-10.44); Carbon Dioxide 28 mmol/L (22-29); Chloride 99 mmol/L (98-107); Estimated GFR-MDRD 52; Glucose 102 mg/dL (70-105); Potassium 4.7 mmol/L (3.5-5.1); Sodium 138 mmol/L (136-145)
[2019-03-29] MEDS: glipiZIDE 10 MG TAB PO SCH ×2 (08:47→20:59)
[2019-03-29] MEDS: Allopurinol 100 MG TAB PO SCH ×2 (08:47→20:59)
[2019-03-29] MEDS: Spironolactone 100 MG TAB PO SCH (08:47)
[2019-03-29] MEDS: FLUoxetine HCl 20 MG CAP PO SCH (08:47)
[2019-03-29] MEDS: Furosemide 40 MG TAB PO SCH ×2 (08:47→14:25)
[2019-03-29] MEDS: Apixaban 5 MG TAB PO SCH ×2 (08:48→20:59)
[2019-03-29] MEDS: Famotidine 20 MG TAB PO SCH ×2 (08:48→21:00)
[2019-03-29] MEDS: Gabapentin 300 MG CAP PO SCH ×2 (08:48→21:00)
[2019-03-29] MEDS: Metoprolol Tartrate 50 MG TAB PO SCH ×2 (08:51→21:00)
[2019-03-29] MEDS: HumaLOG 300 UNITS/3 ML VIAL SC PRN (11:26)
--- NOTE | 2019-03-29 11:53 | PRG ---
DATE OF SERVICE: 03/29/2019 SUBJECTIVE: The patient is seen and examined at the bedside. He is quite exhausted this morning, and he wants some rest. His appetite is fair. OBJECTIVE: VITAL SIGNS: Blood pressure is 113/80, pulse is 70, temperature is 97.6, respirations are 16, O2 saturation is 98% on 2 L by nasal cannula. HEENT: His head is atraumatic and normocephalic. Sclerae are nonicteric. Oral mucosa is slightly dry. NECK: Supple. LUNGS: Breath sounds diminished at both bases with a few crackles bilaterally. HEART: S1 and S2. Irregularly irregular. No S3. No S4. ABDOMEN: Soft, obese, somewhat distended mildly. Bowel sounds present. EXTREMITIES: No clubbing, cyanosis, or edema. NEUROLOGICAL: He is alert and oriented x4. There are no any sensory or motor deficits present. Cranial nerves are intact. LABORATORY DATA: Labs showed normal electrolytes, BUN of 28, creatinine 1.40. Glycemia is ranging from 124 to 261. Calcium is 9.6. IMPRESSION: 1. Acute on chronic congestive heart failure with ejection fraction of the left ventricle estimated at 35% to 40%. 2. Chronic atrial fibrillation, on anticoagulation with Eliquis, rate controlled. 3. Nonalcoholic steatohepatitis and liver cirrhosis. 4. Hypertension. 5. Diabetes mellitus. 6. Morbid obesity. 7. Diabetic neuropathy. 8. Hypothyroidism. 9. Chronic renal failure stage 3. 10. Coronary artery disease and status post stenting. 11. Respiratory failure secondary to congestive heart failure, requiring O2 supplementation. PLAN: We are going to continue his fluid restrictions. We are going to continue his p.o. Lasix. He has good response every day. He is losing about 1000 mL with balance on average. We will continue O2. Yesterday, he was desaturating low to mid 80s, and I hope this is going to get better in the next day or two, and he can be discharged home. Also, we are going to have prescriptions for him ready at the time of discharge since he had some issues with his purchase of spironolactone after he was discharged from previous hospitalization. Job ID: [id number]
--- NOTE | 2019-03-29 16:35 | PDOC.CTH ---
Cardiology Progress Note - Subjective The pt seen and examined. No overnight events. No cardiac complaints. He cont. snuffing and did not want to quit. - Objective Vital Signs Temp Pulse Resp BP BP Pulse Ox 03/29/19 15:41 97.7 F 76 18 140/75 96 03/29/19 12:00 98.3 F 63 18 103/71 99 03/29/19 08:50 70 113/80 98 03/29/19 08:00 97.6 F 73 16 99/64 98 Weight 292 lb 6 oz 03/28/19 03/29/19 03/30/19 06:59 06:59 06:59 Intake Total 1080 1016 50 Output Total 2330 2250 Balance -1250 -1234 50 - Physical Examination General/Neuro: alert & oriented x3 Neck: no JVD present Lungs: CTA (diminished at bases) Heart: RRR Abdomen: soft Extremities: other: (No edema) - Telemetry Telemetry Rhythm: SR - Labs Result Diagrams: 03/25/19 04:46 03/29/19 05:11 Troponin/CKMB Troponin I Less than 0.010 ng/mL (< 0.028) 03/26/19 04:40 - Assessment/Plan 1. Acute on Chronic Systolic HF with EF 35-40% - stable; On Metoprolol 75mg BID , spironolactone 100mg qd, and Lasix 40mg IV BID, which will be changed to PO BID. Not on LEYDI/ARB due to hx of CKD 2. ABD pain - no ABD pain this AM 3. Chronic Afib - well controlled HR with Metoprolol and Eliquis 5mg BID 4. CAD with hx of CABG - stable; on BBlocker but not on statin due to elevated LFT; Not on ASA because he is on Eliquis 5. HTN - stable with current med 6. CKD stage 3 - unchanged 7. DM type 2 - managed by PCP 8. HLD - not on Statin due to Steatohepatitish 9. Hypothyroidism - managed by PCP 10. LBBB - unchanged 11. Non-Alcoholic steatohepatitis with possible Liver cirrhosis - 12. GERD - MAR reviewed * Cont. Metoprolol Tartrate since his HR is well controlled with the med. * Dr Gill's pt Pt. seen and eval. by me. I agree with the A/P by the MATE CHIEF. Exam: Irreg/irreg., chest clear. gjm Review of Systems - Review of Systems Constitutional: reports: no symptoms reported EENTM: reports: no symptoms reported Respiratory: reports: no symptoms reported Cardiac (ROS): reports: no symptoms reported ABD/GI: reports: no symptoms reported : reports: no symptoms reported Musculoskeletal: reports: no symptoms reported
[2019-03-29] MEDS: Melatonin 3 MG TAB PO PRN (20:59)
[2019-03-29] MEDS: Insulin Glargine 20 UNITS in Pre-Filled Syringe 1 EACH SC SCH (21:00)
[2019-03-30] MEDS: Levothyroxine Sodium 100 MCG TAB PO SCH (05:43)
[2019-03-30] MEDS: HumaLOG 300 UNITS/3 ML VIAL SC PRN ×2 (06:12→11:57)
[2019-03-30] MEDS: Famotidine 20 MG TAB PO SCH (08:35)
[2019-03-30] MEDS: Apixaban 5 MG TAB PO SCH (08:36)
[2019-03-30] MEDS: Allopurinol 100 MG TAB PO SCH (08:36)
[2019-03-30] MEDS: glipiZIDE 10 MG TAB PO SCH (08:36)
[2019-03-30] MEDS: Gabapentin 300 MG CAP PO SCH (08:36)
[2019-03-30] MEDS: Furosemide 40 MG TAB PO SCH ×2 (08:37→14:05)
[2019-03-30] MEDS: FLUoxetine HCl 20 MG CAP PO SCH (08:41)
[2019-03-30] MEDS: Metoprolol Tartrate 50 MG TAB PO SCH (08:48)
[2019-03-30] MEDS: Spironolactone 100 MG TAB PO SCH (08:48)
[2019-03-30 15:43] VITALS: BP 131/80; TEMP 97.4
--- NOTE | 2019-03-31 03:51 | DIS ---
DATE OF ADMISSION: 03/24/2019 DATE OF DISCHARGE: 03/30/2019 FINAL DIAGNOSES AT THE TIME OF DISCHARGE: 1. Acute on chronic congestive heart failure with ejection fraction of left ventricle estimated at 35% to 40%. 2. Chronic atrial fibrillation on chronic anticoagulation with Eliquis, rate controlled. 3. Non-alcoholic steatohepatitis and liver cirrhosis. 4. Hypertension. 5. Diabetes mellitus. 6. Morbid obesity. 7. Diabetic neuropathy. 8. Hypothyroidism. 9. Left wrist skin infection, IV site. 10. Chronic renal failure, stage 3. 11. Coronary artery disease, status post stenting. 12. Respiratory failure secondary to congestive heart failure, requiring O2 supplementation. CONSULTANTS: Dr. Villalpando, Cardiology Service. HOSPITAL COURSE: The patient is a 58-year-old male, who was recently discharged from the hospital. He presented to the emergency room with shortness of breath, abdominal distention and pain, nausea, poor oral intake, weight gain, leg swelling, generalized malaise and weakness. Apparently, he did not fill his medications. He was discharged home after the last hospitalization and gradually his condition got worse to the point that he decided to come to the emergency room for evaluation and possible admission. His past medical history is positive for chronic congestive heart failure with systolic and diastolic, and also he has non-alcoholic liver cirrhosis. At the time of emergency room evaluation, his white count was 11.9, hemoglobin was 13.5, platelet count was 311, BUN was 28, creatinine 1.69, and glucose was 281. BNP was 1318. Chest x-ray showed right-sided pleural effusion with some pulmonary vascular congestion. A 12-lead EKG showed atrial fibrillation with controlled ventricular rate at 85 beats per minute. There were no ST-segment or T-wave abnormalities. The patient got admitted to the hospital. He was placed on IV diuretics along with Aldactone. Cardiology was consulted and it was felt that his abdominal pain and some nausea were related to fluid retention all over his body secondary to not taking his diuretics like he was supposed to. Gradually, his swelling improved and his glycemia was controlled with double dose on his long-acting insulin, which is 20 units instead of 10. He was able to stop oxygen supplementation. He was able to walk in the hallway without any oxygen. His blood pressure today is 103/55, temperature is 97.9, respirations 20, and O2 saturation is 99% on room air. He is discharged home in good condition with recommendation to stay on diabetic heart healthy diet. Activities as tolerated. Disposition is home. I wrote him prescription for multiple medications. He is going to go to [facility] and he will go to the Pharmacy, which will help him to get medicine. He will follow up with his primary care physician in a week. If his left hand erythema and cellulitis gets worse, he will see the doctor sooner, but for now, I am writing him a prescription for Keflex 500 mg 3 times a day. Other medications he is supposed to take at home: 1. Allopurinol 100 mg twice a day. 2. Eliquis 5 mg twice a day. 3. Fluoxetine 40 mg once a day. 4. Furosemide 40 mg twice a day. 5. Gabapentin 100 mg twice a day. 6. Glipizide 10 mg twice a day. 7. Levothyroxine 200 mcg once a day. 8. Metoprolol 75 mg once a day. 9. Zyrtec 10 mg once a day. 10. As I mentioned above, insulin glargine 20 units once a day and regular . 11. Continue furosemide 40 mg twice a day tablet one a day. 12. Metoprolol 75 mg twice a day. FOLLOWUP: He will follow up with his customer management specialist, Dr. Rod or Dr. Villalpando in 2 to 3 weeks. Job ID: [id number]
== END 2019-03-30 16:44 | disposition home or self-care (01) | DRG 291 ==
LOC: ERS 10:48 → ERHOLD 14:21 → OBSVTOIN 14:21 → 2SE 19:15
PROVIDERS: ADMIT Internal Medicine; ATTEND Internal Medicine
DX: I13.0 Hypertensive heart and chronic kidney disease with heart failure and stage 1 through stage 4 chronic kidney disease, or unspecified chronic kidney disease (principal); I50.43 Acute on chronic combined systolic (congestive) and diastolic (congestive) heart failure; J96.90 Respiratory failure, unspecified, unspecified whether with hypoxia or hypercapnia; L03.114 Cellulitis of left upper limb; T80.29XA Infection following other infusion, transfusion and therapeutic injection, initial encounter; Y84.8 Other medical procedures as the cause of abnormal reaction of the patient, or of later complication, without mention of misadventure at the time of the procedure; Y92.238 Other place in hospital as the place of occurrence of the external cause; N18.3 Chronic kidney disease, stage 3 (moderate); I48.2 Chronic atrial fibrillation; E03.9 Hypothyroidism, unspecified; M10.9 Gout, unspecified; E11.22 Type 2 diabetes mellitus with diabetic chronic kidney disease; K74.69 Other cirrhosis of liver; K21.9 Gastro-esophageal reflux disease without esophagitis; E78.5 Hyperlipidemia, unspecified; F17.220 Nicotine dependence, chewing tobacco, uncomplicated; K75.81 Nonalcoholic steatohepatitis (NASH); E66.01 Morbid (severe) obesity due to excess calories; I25.10 Atherosclerotic heart disease of native coronary artery without angina pectoris; E11.42 Type 2 diabetes mellitus with diabetic polyneuropathy; K59.00 Constipation, unspecified; I44.7 Left bundle-branch block, unspecified; Z88.0 Allergy status to penicillin; Z88.5 Allergy status to narcotic agent; Z79.01 Long term (current) use of anticoagulants; Z79.899 Other long term (current) drug therapy; Z95.5 Presence of coronary angioplasty implant and graft; Z79.84 Long term (current) use of oral hypoglycemic drugs; Z91.14 Patient's other noncompliance with medication regimen; Z68.33 Body mass index [BMI] 33.0-33.9, adult
CPT/HCPCS: 36415; 36416; 71045; 71250; 74177; 80048; 80053; 82550; 83690; 83735; 83880; 84484; 85025; 93005; 93798; 94760; 96374; J1825; J1940